=== PATIENT | female | born 1930 | race Caucasian/White ===

== ENCOUNTER 2017-07-20 11:51 | Inpatient (IN) | payer MEDICARE, BC ==
[~2017-07-20] VITALS: Ht 170.2 cm; Wt 71.7 kg
[~2017-07-20 11:51] MED LIST changes: -DILT-145 PO
--- NOTE | 2017-07-20 11:54 | ER Report ---
History and Physical Time Seen By MD: 11:53 HPI/ROS CC: Tachycardia HPI: 87-year-old female with a past medical history of cystocele without uterine prolapse, osteoarthritis, pneumonia, aortic arch aneurysm with repair, UTI, bilateral lower extremity edema, left humeral fracture, pulmonary embolus, hypertension, pulmonary infarction, migraine, lipidemia, hearing loss, chronic kidney disease, elevated liver enzymes, non-ST elevated OR, cardiomyopathy, hypothyroidism, atrial fibrillation, CHF, CAD, type II diabetes mellitus. Presents to the emergency department from the PCPs office. She was found to have atrial fibrillation with RVR at a ventricular rate of 145 bpm. WI interval non-measurable QRS duration 132 ms, QT 356 ms, QTC 552 ms. Also with a left bundle-branch block. Patient is without any symptoms other than palpitations of a rapid heart rate. Patient denies any nausea vomiting, diaphoresis, shortness of breath, chest pressure or chest pain. According to the daughter over the last 2-3 days she has progressively worsened in her exercise tolerance. Patient is denying any shortness of breath but the daughter states that she has become more short of breath with ambulation. Patient's pain scale is 0 out of 10. She has no other complaints. ROS: 12 point review of systems essentially negative other than what's mentioned in history of present illness. NURSES AND OLD MEDICAL RECORDS: Reviewed PMH: Reviewed SURGICAL HX: Reviewed FAMILY HX: Noncontributory SOCIAL HX: Patient denies smoking alcohol or illicit drugs. Lives at home. VITAL SIGNS: Reviewed CONSTITUTIONAL: 87 year old female in minimal distress. PHYSICAL EXAM: HEENT: Pupils equal round reactive to light and accommodate, EOMI, tympanic membranes pearly white umbo present with good light reflex. Lips dry mucous membranes moist gums nonbleeding uvula midline and rises equally with phonation, oropharynx noninjected, teeth intact. NECK: Neck supple, thyroid not appreciated, anterior and posterior cervical lymphadenopathy not appreciated. Trachea midline and rises equally with phonation. CARDIAC: S1-S2 tachycardic, irregularly irregular rate rhythm no murmurs rubs or gallops. LUNGS: Lungs crackles bilaterally greater at the bases posteriorly in all fontenot. Good air movement. ABDOMEN: Abdomen soft, nondistended, bowel sounds active in all 4 quadrants, no bruits noted, no CVA tenderness. MUSCULOSKELETAL: Strength 5 out of 5 x 4 extremities, no deformities noted. Positive bilateral lower leg edema to the knees. NEUROLOGIC: Patient alert and oriented by 3 Allergies: Coded Allergies: Sulfa (Sulfonamide Antibiotics) (Unverified Allergy, Severe, HIVES, ) procaine (Verified Allergy, Severe, ITCHING, RESP PROBLEMS, HIVES, 08/14/15 ) Penicillins (Verified Allergy, Unknown, UNKNOWN, 08/14/15) Home Meds Active Scripts Warfarin Sodium (WARFARIN SODIUM) 5 Mg Tablet, 1 TAB PO QDAY, #30 TAB Prov:GUALBERTO DANIELLE MD 05/28/17 Furosemide (FUROSEMIDE) 20 Mg Tablet, 20 MG PO QDAY, #30 TAB 3 Refills Prov:GUALBERTO DANIELLE MD 05/09/17 Potassium Chloride (POTASSIUM CHLORIDE) 20 Meq Tab.er.prt, 20 MEQ PO QODAY, #15 TAB 3 Refills Prov:GUALBERTO DANIELLE MD 03/29/17 Levothyroxine Sodium (LEVOTHYROXINE SODIUM) 25 Mcg Tablet, 1 TAB PO QDAY, #90 TAB 2 Refills Prov:GUALBERTO DANIELLE MD 02/22/17 Losartan Potassium (LOSARTAN POTASSIUM) 25 Mg Tablet, 25 MG PO QDAY, #90 TAB 4 Refills Prov:GUALBERTO DANIELLE MD 02/21/17 Aspirin (ASPIR 81) 81 Mg Tablet.dr, 81 MG PO QDAY, #90 TAB 3 Refills Prov:GUALBERTO DANIELLE MD 02/19/17 Metformin Hcl (METFORMIN HCL ER) 500 Mg Tab.er.24, 2 TAB PO QDAY, #60 TAB 4 Refills Prov:GUALBERTO DANIELLE MD 01/31/17 Blood Sugar Diagnostic (ONE TOUCH ULTRA TEST STRIPS) 1 Each Strip, 1 EACH MC QDAY, #100 STRIP 3 Refills Use once a day to test blood sugar Prov:GUALBERTO DANIELLE MD 11/03/16 Lancets (ONE TOUCH LANCETS) 1 Each Each, 1 EACH MC QDAY, #100 3 Refills Use once a day to test blood sugar Prov:GUALBERTO DANIELLE MD 11/03/16 Blood-Glucose Meter (ONE TOUCH ULTRA 2) 1 Each Kit, 1 EACH MC QDAY, #1 Use once a day to test blood sugar Prov:GUALBERTO DANIELLE MD 11/03/16 Discontinued Scripts Atorvastatin Calcium (ATORVASTATIN CALCIUM) 10 Mg Tablet, 1 TAB PO QHS, #90 TAB 0 Refills Prov:GUALBERTO DANIELLE MD 05/15/17 Hx Smoking: Yes (JUST A FEW YEARS SHE STATES) Smoking Status: Former Smoker Exposure to Second Hand Smoke?: No Hx Substance Use Disorder: No Hx Alcohol Use: Yes (OCC) Constitutional Vital Sign - Last 24 Hours 07/20/17 07/20/17 07/20/17 07/20/17 11:57 12:00 12:06 12:09 Pulse 142 140 Resp 18 26 B/P (MAP) 115/79 115/79 (91) Pulse Ox 94 95 O2 Delivery Nasal Cannula O2 Flow Rate 3.0 07/20/17 07/20/17 07/20/17 07/20/17 12:12 12:21 12:30 12:35 Pulse 111 Resp 24 B/P (MAP) 105/80 (88) 98/70 (79) 110/72 (85) Pulse Ox 91 07/20/17 12:36 Pulse ??? Resp 28 Pulse Ox 94 Intake and Output 07/20/17 07/20/17 07/21/17 15:00 23:00 07:00 Output Total 100 ml Balance -100 ml Medical Decision Making Data Points Result Diagram: 07/20/17 1220 07/20/17 1220 Laboratory Hematology Test 07/20/17 12:20 Red Blood Count 5.21 M/uL (4.17-5.56) Mean Corpuscular Volume 90.5 fL (80.0-96.0) Mean Corpuscular Hemoglobin 30.2 pg (26.0-33.0) Mean Corpuscular Hemoglobin Concent 33.3 g/dL (32.0-36.0) Red Cell Distribution Width 16.2 % (11.5-14.5) Mean Platelet Volume 9.0 fL (7.2-11.1) Neutrophils (%) (Auto) 85.9 % (39.4-72.5) Lymphocytes (%) (Auto) 4.5 % (17.6-49.6) Monocytes (%) (Auto) 8.7 % (4.1-12.4) Eosinophils (%) (Auto) 0.3 % (0.4-6.7) Basophils (%) (Auto) 0.6 % (0.3-1.4) Nucleated RBC Relative Count (auto) 0.0 /100WBC Neutrophils # (Auto) 4.8 K/uL (2.0-7.4) Lymphocytes # (Auto) 0.3 K/uL (1.3-3.6) Monocytes # (Auto) 0.5 K/uL (0.3-1.0) Eosinophils # (Auto) 0.0 K/uL (0.0-0.5) Basophils # (Auto) 0.0 K/uL (0.0-0.1) Nucleated RBC Absolute Count (auto) 0.00 K/uL Prothrombin Time 23.5 seconds (12.0-14.4) Prothromb Time International Ratio 2.03 Activated Partial Thromboplast Time 28 seconds (23-35) Sodium Level 135 mmol/L (137-145) Potassium Level 4.4 mmol/L (3.5-5.0) Chloride Level 98 mmol/L (98-107) Carbon Dioxide Level 27 mmol/L (22-31) Blood Urea Nitrogen 25 mg/dl (7-18) Creatinine 0.90 mg/dl (0.52-1.04) Glomerular Filtration Rate Calc 59.4 Random Glucose 183 mg/dl (75-110) Calcium Level 9.1 mg/dl (8.4-10.2) Magnesium Level 1.4 mg/dl (1.7-2.2) Total Bilirubin 1.7 mg/dl (0.2-1.3) Aspartate Amino Transf (AST/SGOT) 42 U/L (0-35) Alanine Aminotransferase (ALT/SGPT) 89 U/L (0-56) Alkaline Phosphatase 101 U/L (0-126) Troponin I 0.022 ng/ml B-Type Natriuretic Peptide 1620 pg/ml (0-100) Total Protein 6.4 gm/dl (6.3-8.2) Albumin 3.6 g/dl (3.5-5.0) Chemistry Test 07/20/17 12:20 White Blood Count 5.6 k/uL (4.5-11.0) Red Blood Count 5.21 M/uL (4.17-5.56) Hemoglobin 15.7 g/dL (12.0-16.0) Hematocrit 47.2 % (34.0-47.0) Mean Corpuscular Volume 90.5 fL (80.0-96.0) Mean Corpuscular Hemoglobin 30.2 pg (26.0-33.0) Mean Corpuscular Hemoglobin Concent 33.3 g/dL (32.0-36.0) Red Cell Distribution Width 16.2 % (11.5-14.5) Platelet Count 173 K/uL (150-450) Mean Platelet Volume 9.0 fL (7.2-11.1) Neutrophils (%) (Auto) 85.9 % (39.4-72.5) Lymphocytes (%) (Auto) 4.5 % (17.6-49.6) Monocytes (%) (Auto) 8.7 % (4.1-12.4) Eosinophils (%) (Auto) 0.3 % (0.4-6.7) Basophils (%) (Auto) 0.6 % (0.3-1.4) Nucleated RBC Relative Count (auto) 0.0 /100WBC Neutrophils # (Auto) 4.8 K/uL (2.0-7.4) Lymphocytes # (Auto) 0.3 K/uL (1.3-3.6) Monocytes # (Auto) 0.5 K/uL (0.3-1.0) Eosinophils # (Auto) 0.0 K/uL (0.0-0.5) Basophils # (Auto) 0.0 K/uL (0.0-0.1) Nucleated RBC Absolute Count (auto) 0.00 K/uL Prothrombin Time 23.5 seconds (12.0-14.4) Prothromb Time International Ratio 2.03 Activated Partial Thromboplast Time 28 seconds (23-35) Glomerular Filtration Rate Calc 59.4 Calcium Level 9.1 mg/dl (8.4-10.2) Magnesium Level 1.4 mg/dl (1.7-2.2) Total Bilirubin 1.7 mg/dl (0.2-1.3) Aspartate Amino Transf (AST/SGOT) 42 U/L (0-35) Alanine Aminotransferase (ALT/SGPT) 89 U/L (0-56) Alkaline Phosphatase 101 U/L (0-126) Troponin I 0.022 ng/ml B-Type Natriuretic Peptide 1620 pg/ml (0-100) Total Protein 6.4 gm/dl (6.3-8.2) Albumin 3.6 g/dl (3.5-5.0) Coagulation Test 07/20/17 12:20 Prothrombin Time 23.5 seconds Prothromb Time International Ratio 2.03 Activated Partial Thromboplast Time 28 seconds EKG/Imaging EKG Interpretation Atrial fibrillation with RVR, left bundle-branch block, ventricular rate 137 bpm , WI interval not measurable, QRS duration 142 ms, Q-T 372 ms, QTC is 561 ms. Imaging Chest x-ray reveals: IMPRESSION: 1. Mild cardiac silhouette enlargement which has increased since 11/30/2016. 2. New vascular congestion and probable mild pulmonary edema. ED Course/Re-evaluation ED Course Patient with CHF she received 60 mg of IV Lasix. Patient received Cardizem 20 mg IV for her atrial fibrillation and RVR. Patient continues to be tachycardic and her CHF patient was placed on diltiazem drip. Patient also has magnesium level of 1.4 and was given 2 g of magnesium IV. Report was given to Dr. Moffett, hospitalist. He accepts patient. Patient will be admitted to the hospital for further evaluation and treatment. Patient with a plan and in agreement. Re-evaluation CHF, atrial fibrillation with RVR, acute OR, this most likely accommodation of CHF with atrial fib RVR. Decision to Disposition Date: Jul 20, 2017 Decision to Disposition Time: 13:41 Depart Departure Latest Vital Signs Vital Signs Date Time Temp Pulse Resp B/P (MAP) Pulse Ox O2 Delivery O2 Flow Rate FiO2 07/20/17 12:36 ??? 28 94 07/20/17 12:35 110/72 (85) 07/20/17 12:09 3.0 07/20/17 11:57 Nasal Cannula Impression: Primary Impression: Atrial fibrillation with RVR Additional Impressions: Congestive heart failure Hypomagnesemia Condition: Condition Unchanged Disposition: Admitted from ER Referrals: GUALBERTO DANIELLE MD (PCP) Problem Qualifiers Additional Impressions: Congestive heart failure Congestive heart failure type: unspecified congestive heart failure type Congestive heart failure chronicity: unspecified congestive heart failure chronicity Qualified Codes: I50.9 - Heart failure, unspecified MOOSE MARTINEZ MD Jul 20, 2017 11:54
[2017-07-20] MEDS ORDERED: DILTIAZEM 5 MG/ML 5ML IVPUSH IVP ONE (12:05)
--- NOTE | 2017-07-20 12:14 | EKG ---
FACILITY: [facility] PATIENT NAME: MATEUS BARRETT : [id number] MR: [id number] V: [id number] EXAM DATE: ORDERING PHYSICIAN: MOOSE MARTINEZ TECHNOLOGIST: Test Reason : tachycardia Blood Pressure : / mmHG Vent. Rate : 137 BPM Atrial Rate : 100 BPM P-R Int : 000 ms QRS Dur : 142 ms QT Int : 372 ms P-R-T Axes : 000 038 221 degrees QTc Int : 561 ms Atrial fibrillation with rapid ventricular response Left bundle branch block Abnormal ECG When compared with ECG of 19-FEB-2017 09:57, Atrial fibrillation has replaced Sinus rhythm Vent. rate has increased BY 67 BPM Confirmed by ANTHONY MENA ([id number]) on 07/22/2017 2:57:09 PM Referred By: MICHELLE Confirmed By:ANTHONY MENA
[2017-07-20] MEDS ORDERED: FUROSEMIDE 40 MG/4 ML VIAL IVP ONE (12:25)
[2017-07-20 12:31] LABS: PLATELET COUNT, AUTOMATED 173 K/uL (150-450)
--- NOTE | 2017-07-20 12:51 | RADIOLOGY IMAGING REPORT ---
FACILITY: [facility] PATIENT NAME: Argenis Jones : 1930 MR: [id number] V: [id number] EXAM DATE: ORDERING PHYSICIAN: MOOSE MARTINEZ TECHNOLOGIST: Location: [facility] Patient: Argenis Jones : 1930 Visit/Account:[id number] Date of Sevice: 07/20/2017 Examination: CHEST SINGLE AP Comparison: 11/30/2016 and earlier. History: Chest Pain Findings: Sternotomy wires are midline and intact. Cardiac silhouette is mildly enlarged and increase d in the interval. Aortic atherosclerosis. Aortic contour is unchanged. Increased vascular congestio n with mild indistinctness of the central vascular margins. No consolidation. No pneumothorax. A trac e left pleural effusion could be present. No acute osseous normality. IMPRESSION: 1. Mild cardiac silhouette enlargement which has increased since 11/30/2016. 2. New vascular congestion and probable mild pulmonary edema. Report Dictated By: Luciano Yanez MD at 07/20/2017 12:45 PM Report E-Signed By: Luciano Yanez MD at 07/20/2017 12:47 PM WSN:[id number]
[2017-07-20 12:54] LABS: INR 2.03
[2017-07-20] MEDS ORDERED: MAGNESIUM SUL* 2 GM/50 ML IVPB 50 ML IVPB ONE (13:20)
[2017-07-20] MEDS ORDERED: DILTIAZEM HCL* 100 MG ADDVIAL 100 MG in NS(*) 0.9% 100 ML ADDVANT BAG 100 ML IV SCH ×2 (13:25→13:45)
[2017-07-20] MEDS ORDERED: NS(*) 0.9% 1000 ML BAG 1,000 ML IV ONE (13:50)
[2017-07-20 15:34] VITALS: BP 131/84
[2017-07-20] MEDS ORDERED: guaiFENesin SYRP 100MG/5ML UDC PO PRN (17:45)
[2017-07-20] MEDS ORDERED: METOPROLOL TART 50 MG TAB PO ONE (17:45)
[2017-07-20] MEDS ORDERED: ONDANSETRON 4 MG/2 ML VIAL IVP PRN (18:10)
[2017-07-20] MEDS ORDERED: ACETAMINOPHEN 325 MG TAB PO PRN (18:10)
[2017-07-20 18:25] VITALS: BP 98/83
[2017-07-20] MEDS ORDERED: NS(*) 0.9% 1000 ML BAG 1,000 ML IV PRN (18:45)
[2017-07-20] MEDS: metFORMIN HCL 500 MG TAB PO SCH (20:49)
[2017-07-20] MEDS: INSULIN HUMAN LISPRO SLIDING SCALE SUBQ PRN (20:50)
[2017-07-20] MEDS ORDERED: DILTIAZEM CD 180 MG CAPCR PO SCH ×3 (21:00)
[2017-07-20 21:07] VITALS: Ht 170.2 cm; Wt 71.7 kg
--- NOTE | 2017-07-20 21:19 | Medical Nutrition Therapy ---
Nutrition Anthropometrics Height (Inches): 67.00 Height (Calculated Centimeters: 170.490031 Weight (Pounds): 158 Weight (Calculated Kilograms): 71.724 BMI Calculated: 24.74 Bob Nutrition Score: Probably Inadequate Bob Nutrition Risk Score: 16 Dietary Referral Nutrition Risk Factors: Nutrition Risk Comment: Physical Findings Physical Appearance: WNR Skin Appearance Skin Appearance: Edema Edema Location Modifier: Both Edema Location: Type of Edema: Degree of Edema: 1+ Gastrointestinal Symptoms GI Symtoms: Tube Present: Bowel Sounds: Recent Bowel Pattern: Stool Characteristics: Nutritional Diagnosis Nutritional Risk Acuity 2: CHF w/Complication Past Medical History: hpothyroid, HTN, GERD, CAD hyperlipidemia, post orthopedic surgery Nutritional Acuity: 2-Moderate Nutrition Diagnosis: Decreased Nutrient Needs Nutrition Etiology: Physiological Causes Nutrition Problem/Etiology/Sym: Decreased Nutrient Needs r/t heart failure AEB conditions associated with a diagnosis or treatment that require a specific type and/or amount of nutrient, e.g., heart failure (sodium, fluid) Energy Requirement: 1800 ([place]-St Jeor: Actual BW X 1.5) Protein Requirement: 72 (Actual BW Kg X 1.0) Diet Type: Cardiac Nutrition Intervention: Cont diet as ordered, Change diet Drug: Diuretics, Warfarin Do Not Serve Any of the Follow: Broccoli, Brussel Sprouts, Spinach, [place] Lettuce, Cranberry Juice Nutrition Monitoring & Eval Nutrition Goals: Eat 75-100% Meal RD Patient Assessment Time: [address] Assessment Type: RD Assessment Patient Nutrition Acuity: 2-Moderate Follow Up Date: Jul 22, 2017 Nutritional Comment: Pt admitted for CHF. Within normal wt range with BMI of 24.7. Alb 3.6, BNP 1620, High AST/ALT, Glu 183. Metformin 500mg BID, Lispro SSI. Receiving Cardiac diet with no reports of intake. May benefit from diabetic diet while in hospital. Follow diet change, labs, etc. JUNE INIGUEZ Jul 20, 2017 21:18
--- NOTE | 2017-07-20 23:09 | History & Physical ---
History of Present Illness Chief Complaint Tachycardia History of Present Illness Mrs. oJnes is an 87-year-old female with a past medical history of HTN, DM-II, Hyperlipidemia, Hypothyroidism, A.fib on Coumadin and cystocele without uterine prolapse, osteoarthritis, pneumonia, aortic arch aneurysm with repair, UTI, bilateral lower extremity edema, left humeral fracture, pulmonary embolus, migraine, hearing loss, chronic kidney disease, elevated liver enzymes, non-ST elevated [place], cardiomyopathy, hypothyroidism, CHF, CAD, She Presented to the emergency department from the PCPs office. She was found to have atrial fibrillation with RVR at a ventricular rate of 145 bpm. MT interval non- measurable QRS duration 132 ms, QT 356 ms, QTC 552 ms. Also with a left bundle- branch block. Patient was without any symptoms other than palpitations of a rapid heart rate. Patient denied any nausea vomiting, diaphoresis, shortness of breath, chest pressure or chest pain. According to the daughter over the last 2- 3 days she has progressively worsened in her exercise tolerance. Patient denied any shortness of breath but the daughter stated that she became more short of breath with ambulation. Patient's pain scale was 0 out of 10. She has no other complaints. During the ER evaluation she found to have high BNP>1600 and mild elevation of BUN/CR. I discussed the case with the ER-MD and admitted the patient for further evaluation and management. History Home Meds Active Scripts Warfarin Sodium (WARFARIN SODIUM) 5 Mg Tablet, 1 TAB PO QDAY, #30 TAB Prov:GUALBERTO DANIELLE MD 05/28/17 Furosemide (FUROSEMIDE) 20 Mg Tablet, 20 MG PO QDAY, #30 TAB 3 Refills Prov:GUALBERTO DANIELLE MD 05/09/17 Potassium Chloride (POTASSIUM CHLORIDE) 20 Meq Tab.er.prt, 20 MEQ PO QODAY, #15 TAB 3 Refills Prov:GUALBERTO DANIELLE MD 03/29/17 Levothyroxine Sodium (LEVOTHYROXINE SODIUM) 25 Mcg Tablet, 1 TAB PO QDAY, #90 TAB 2 Refills Prov:GUALBERTO DANIELLE MD 02/22/17 Losartan Potassium (LOSARTAN POTASSIUM) 25 Mg Tablet, 25 MG PO QDAY, #90 TAB 4 Refills Prov:GUALBERTO DANIELLE MD 02/21/17 Aspirin (ASPIR 81) 81 Mg Tablet.dr, 81 MG PO QDAY, #90 TAB 3 Refills Prov:GUALBERTO DANIELLE MD 02/19/17 Metformin Hcl (METFORMIN HCL ER) 500 Mg Tab.er.24, 2 TAB PO QDAY, #60 TAB 4 Refills Prov:GUALBERTO DANIELLE MD 01/31/17 Blood Sugar Diagnostic (ONE TOUCH ULTRA TEST STRIPS) 1 Each Strip, 1 EACH MC QDAY, #100 STRIP 3 Refills Use once a day to test blood sugar Prov:GUALBERTO DANIELLE MD 11/03/16 Lancets (ONE TOUCH LANCETS) 1 Each Each, 1 EACH MC QDAY, #100 3 Refills Use once a day to test blood sugar Prov:GUALBERTO DANIELLE MD 11/03/16 Blood-Glucose Meter (ONE TOUCH ULTRA 2) 1 Each Kit, 1 EACH MC QDAY, #1 Use once a day to test blood sugar Prov:GUALBERTO DANIELLE MD 11/03/16 Discontinued Scripts Atorvastatin Calcium (ATORVASTATIN CALCIUM) 10 Mg Tablet, 1 TAB PO QHS, #90 TAB 0 Refills Prov:GUALBERTO DANIELLE MD 05/15/17 Allergies: Coded Allergies: Sulfa (Sulfonamide Antibiotics) (Unverified Allergy, Severe, HIVES, ) procaine (Verified Allergy, Severe, ITCHING, RESP PROBLEMS, HIVES, 08/14/15 ) Penicillins (Verified Allergy, Unknown, UNKNOWN, 08/14/15) Patient History: FH: breast cancer BROTHER OR SISTER, Age:Unk (One sister with Breast Cancer) Aunt, Age:Unk Hx Smoking: Yes (JUST A FEW YEARS SHE STATES) Smoking Status: Former Smoker Exposure to Second Hand Smoke?: No Caffeine Intake: Coffee Caffeine/Cups Per Day: 1 Hx Alcohol Use: Yes (OCC) Hx Substance Use Disorder: No Social Drug Use: Never Review of Systems Constitutional: No Fever, No Weight Loss, No Weight Gain, No Chills Neurological: Weakness, No Syncope, No Confusion, No Dizziness, No Slurred Speech Eyes: No Vision Change ENT: Other, No Sinus Congestion, No Sore Throat Cardiovascular: Palpitations, No Chest Pain Respiratory: Shortness of Breath, No Cough, No Wheezing Gastrointestinal: No Nausea, No Vomiting, No Diarrhea, No Dysphagia, No Constipation, No Hematemesis, No Melena, No Abdominal Pain Genitourinary: No Dysuria, No Hematuria Musculoskeletal: No Pain, No Sprain, No Strain Psychiatric: No Depression, No Anxiety Exam Vital Signs Vital Signs Date Time Temp Pulse Resp B/P (MAP) Pulse Ox O2 Delivery O2 Flow Rate FiO2 07/20/17 19:19 93 Nasal Cannula 3.0 07/20/17 18:25 98.3 162 15 98/83 (88) General Appearance: Alert, Awake, No Acute Distress, Afebrile Neuro: No Gross deficits Eyes: PERRLA ENT: Other (dry oral mucosa) Cardiovascular: Other (a.fib with RVR) Respiratory: No Respiratory Distress GI: Abd Soft and Non-Tender Extremities: Soft and Non Tender, Edema Psych: Alert & Oriented X3, Appropriate Mood & Affect Medical Decision Making Data Points Result Diagram: 07/20/17 1220 07/20/17 1220 Assessment and Plan Problems: (1) Atrial fibrillation with RVR Status: Acute Assessment & Plan: She presented with [email or web address] with RVR and she was started on Cardizem drip 10mg/h in the ER. Her VR was 130's. I started her on Metoprolol 25mg po bid and 1st dose now. I will add PO Cardizem CD 180mg once her VR around 100 and then stop her drip. I will keep her on Cardizem CD 180 daily and Metoprolol 25mg po bid. I will continue her Coumadin 5mg daily. (2) Congestive heart failure Status: Acute Assessment & Plan: She is in mild fluid overload and I will Lasix and and elevate her LE above heart level. I will repeat her blood work in am. (3) Diabetes mellitus, type 2 Status: Chronic Assessment & Plan: I will check her BS qAC and HS. I will put her on sliding scale of Humolog to cover her high BS. I will keep her Metformin 500mg po bid. Robitussin for her cough. I will manage her underlying medical problems accordingly during this hospitalization. Central Venous Access Medical Necessity for Access: IV Access, Medication Administration Condition Guarded Time Spent on Plan of Care: > 30 min Copies to: GUALBERTO DANIELLE MD Venous Thromboembolism VTE Risk Physician Assess for VTE Risk: Yes Patient's VTE Risk: Low VTE Diagnostic Test 2 Days Prior to Admit: No Antithrombotics Is Pt On Any Antithrombotics?: No Heart Failure Ejection Fraction %: 23 NYHA Class: III Is Patient on BRET Inhibitor?: Yes Is Patient on Beta Viktor?: Yes Admission Weight: 80 Exam Sepsis Risk: No Definite Risk EVY SINGH MD Jul 20, 2017 23:09
[2017-07-20 23:48] VITALS: BP 94/76
[2017-07-21 03:59] VITALS: BP 86/69
[2017-07-21 04:18] VITALS: BP 84/60
[2017-07-21] MEDS ORDERED: LEVOTHYROXINE SOD 0.025 MG TAB PO SCH (06:00)
[2017-07-21] MEDS ORDERED: DILTIAZEM HCL* 100 MG ADDVIAL 100 MG in NS(*) 0.9% 100 ML ADDVANT BAG 100 ML IV SCH (07:00)
[2017-07-21 08:01] VITALS: BP 101/78
[2017-07-21] MEDS ORDERED: ASPIRIN 81 MG CHEW CHEW SCH (09:00)
[2017-07-21] MEDS ORDERED: FUROSEMIDE 40 MG TAB PO SCH (09:00)
[2017-07-21] MEDS ORDERED: LOSARTAN POTASSIUM 50 MG TAB PO SCH (09:00)
[2017-07-21] MEDS ORDERED: METOPROLOL TART 50 MG TAB PO SCH (09:00)
[2017-07-21] MEDS: metFORMIN HCL 500 MG TAB PO SCH (09:00)
[2017-07-21 09:55] LABS: INR 2.25
[2017-07-21] MEDS ORDERED: WARFARIN SOD 5 MG TAB PO SCH (13:00)
[2017-07-21] MEDS: INSULIN HUMAN LISPRO SLIDING SCALE SUBQ PRN (13:35)
[2017-07-21] MEDS ORDERED: DILT-145 PO (13:43)
[2017-07-21] MEDS ORDERED: METO25TA93 PO (13:48)
--- NOTE | 2017-07-21 21:22 | Hospitalist Depart ---
Discharge Summary Reason for Hosp/Final Diag: (1) Atrial fibrillation with RVR Status: Acute Hospital Course & Plan: Mrs. Jones is an 87-year-old female with a past medical history of HTN, DM-II, Hyperlipidemia, Hypothyroidism, A.fib on Coumadin and cystocele without uterine prolapse, osteoarthritis, pneumonia, aortic arch aneurysm with repair, UTI, bilateral lower extremity edema, left humeral fracture, pulmonary embolus, migraine, hearing loss, chronic kidney disease, elevated liver enzymes, non-ST elevated [place], cardiomyopathy, hypothyroidism, CHF, CAD, She Presented to the emergency department from the PCPs office. She was found to have atrial fibrillation with RVR at a ventricular rate of 145 bpm. W[place] interval non-measurable QRS duration 132 ms, QT 356 ms, QTC 552 ms. Also with a left bundle-branch block. Patient was without any symptoms other than palpitations of a rapid heart rate. Patient denied any nausea vomiting, diaphoresis, shortness of breath, chest pressure or chest pain. According to the daughter over the last 2-3 days she has progressively worsened in her exercise tolerance. Patient denied any shortness of breath but the daughter stated that she became more short of breath with ambulation. Patient's pain scale was 0 out of 10. She has no other complaints. During the ER evaluation she found to have high BNP>1600 and mild elevation of BUN/CR. I discussed the case with the ER-MD and admitted the patient for further evaluation and management.She presented with A.fib with RVR and she was started on Cardizem drip 10mg/h in the ER. Her VR was 130's. I started her on Metoprolol 25mg po bid and 1st dose now. I will add PO Cardizem CD 180mg once her VR around 100 and then stop her drip. I will keep her on Cardizem CD 180 daily and Metoprolol 25mg po bid. I will continue her Coumadin 5mg daily. 07/21: She did well on the above regimen Cardizem CD 180mg qd and Metoprolol 25mg po bid. She will be d/c'd today and f/u with her PCP and manager environmental services (2) Congestive heart failure Status: Acute Hospital Course & Plan: She is in mild fluid overload and I will Lasix and and elevate her LE above heart level. I will repeat her blood work in am. 07/21: She is asymptomatic and denies any SOB/CP (3) Diabetes mellitus, type 2 Status: Chronic Hospital Course & Plan: I will check her BS qAC and HS. I will put her on sliding scale of Humolog to cover her high BS. I will keep her Metformin 500mg po bid. Robitussin for her cough. I will manage her underlying medical problems accordingly during this hospitalization. Departure Weight (Pounds): 158 Weight (Ounces): 2.0 Result Diagram: 07/20/17 1220 07/21/17 0650 Condition: Improved Discharge: Home, Self Care, Home Health Time Spent: > 30 min Discharge Instructions Home Meds Active Scripts Warfarin Sodium (WARFARIN SODIUM) 5 Mg Tablet, 1 TAB PO QDAY, #30 TAB Prov:GUALBERTO DANIELLE MD 05/28/17 Furosemide (FUROSEMIDE) 20 Mg Tablet, 20 MG PO QDAY, #30 TAB 3 Refills Prov:GUALBERTO DANIELLE MD 05/09/17 Potassium Chloride (POTASSIUM CHLORIDE) 20 Meq Tab.er.prt, 20 MEQ PO QODAY, #15 TAB 3 Refills Prov:GUALBERTO DANIELLE MD 03/29/17 Levothyroxine Sodium (LEVOTHYROXINE SODIUM) 25 Mcg Tablet, 1 TAB PO QDAY, #90 TAB 2 Refills Prov:GUALBERTO DANIELLE MD 02/22/17 Losartan Potassium (LOSARTAN POTASSIUM) 25 Mg Tablet, 25 MG PO QDAY, #90 TAB 4 Refills Prov:GUALBERTO DANIELLE MD 02/21/17 Aspirin (ASPIR 81) 81 Mg Tablet.dr, 81 MG PO QDAY, #90 TAB 3 Refills Prov:GUALBERTO DANIELLE MD 02/19/17 Metformin Hcl (METFORMIN HCL ER) 500 Mg Tab.er.24, 2 TAB PO QDAY, #60 TAB 4 Refills Prov:GUALBERTO DANIELLE MD 01/31/17 Blood Sugar Diagnostic (ONE TOUCH ULTRA TEST STRIPS) 1 Each Strip, 1 EACH MC QDAY, #100 STRIP 3 Refills Use once a day to test blood sugar Prov:GUALBERTO DANIELLE MD 11/03/16 Lancets (ONE TOUCH LANCETS) 1 Each Each, 1 EACH MC QDAY, #100 3 Refills Use once a day to test blood sugar Prov:GUALBERTO DANIELLE MD 11/03/16 Blood-Glucose Meter (ONE TOUCH ULTRA 2) 1 Each Kit, 1 EACH MC QDAY, #1 Use once a day to test blood sugar Prov:GUALBERTO DANIELLE MD 11/03/16 Reported Medications Metoprolol Tartrate (METOPROLOL TARTRATE) 25 Mg Tablet, 1 TAB PO BID, TAB 07/21/17 Diltiazem Hcl (CARDIZEM CD) 180 Mg Cap.er.24h, 180 MG PO DAILY 07/21/17 Discontinued Scripts Atorvastatin Calcium (ATORVASTATIN CALCIUM) 10 Mg Tablet, 1 TAB PO QHS, #90 TAB 0 Refills Prov:GUALBERTO DANIELLE MD 05/15/17 Diet: Diabetic, Low Cholesterol & Sat Fat Activity: As Tolerated, With Walker Special Instructions: Patient will take Cardizem CD 180mg po daily for her A.fib and Metoprolol 25mg po bid and f/u with her PCP and manager environmental services in 1-2 weeks. Please call your primary care physician and your manager environmental services to make appointments as soon as possibe. Venous Thromboembolism Antithrombotics Is Pt On Any Antithrombotics?: No Heart Failure Ejection Fraction %: 23 NYHA Class: III Is Patient on BRET Inhibitor?: Yes Is Patient on Beta Viktor?: Yes Admission Weight: 80 EVY SINGH MD Jul 21, 2017 21:22
== END 2017-07-21 15:05 | disposition home or self-care (01) | DRG 309 ==
LOC: ER 11:56 → MED 14:06
PROVIDERS: ADMIT Specialist; ATTEND Specialist
DX: I48.0 Paroxysmal atrial fibrillation (principal); I13.0 Hypertensive heart and chronic kidney disease with heart failure and stage 1 through stage 4 chronic kidney disease, or unspecified chronic kidney disease; E11.22 Type 2 diabetes mellitus with diabetic chronic kidney disease; E83.42 Hypomagnesemia; I25.10 Atherosclerotic heart disease of native coronary artery without angina pectoris; I50.9 Heart failure, unspecified; E78.5 Hyperlipidemia, unspecified; I44.7 Left bundle-branch block, unspecified; E03.9 Hypothyroidism, unspecified; N18.9 Chronic kidney disease, unspecified; Z79.01 Long term (current) use of anticoagulants; Z86.711 Personal history of pulmonary embolism; I25.2 Old myocardial infarction; Z88.2 Allergy status to sulfonamides; Z88.0 Allergy status to penicillin; Z88.8 Allergy status to other drugs, medicaments and biological substances; Z87.891 Personal history of nicotine dependence; Z79.4 Long term (current) use of insulin; Z95.5 Presence of coronary angioplasty implant and graft; Z90.49 Acquired absence of other specified parts of digestive tract; Z90.710 Acquired absence of both cervix and uterus
CPT/HCPCS: 36415; 36416; 71010; 81001; 82040; 82247; 82310; 82374; 82435; 82565; 82947; 82948; 83735; 83880; 84075; 84132; 84155; 84295; 84443; 84450; 84460; 84484; 84520; 85025; 85610; 85730; 87077; 87088; 87186; 93005; 96365; 96368; 96375; 99285; J1940; J3475; J3490; J7030; J7050

== ENCOUNTER → 2017-07-20 | Outpatient (CLI) | payer MEDICARE, BC ==
[2016-10-25 15:56] VITALS: BMI 27.9
[~2017-07-20] MED LIST: ACET-1966 PO; ACET-2119 PO; ACET650S35 RC; ASCO100T15 PO; ASPI-1471 PO; ASPI-764 PO; ASPI-816 PO; ATOR10TA65 PO; AZI250 PO; AZIT-17 PO; BISA-229 PO; BISA10SU62 RC; BLOO-1318 MC; BLOO-1337 MC; CEPH500C24 PO; CHOL10005 PO; CLOP75TA43 PO; DILT-145 PO; DOCU100T13 PO; FLU180SY9 IM; FURO-45 PO; GLIM2TAB43 PO; HYDR-2966 PO; HYDR12.556 PO; HYDR12.561 PO; LANC-1149 MC; LEVO150T72 PO; LEVO25TA61 PO; LOR5/325 PO; LOSA-57 PO; LOSA100T67 PO; LOSA25TA50 PO; LOSA50TA72 PO; MELA1TAB27 PO; MELA3TAB31 PO; METF500T4 PO; METO25TA23 PO; METO25TA93 PO; ONDA4TAB9 PO; PANT40TA65 PO; PER PO; PNEU0.5D3 IM; POLY17PO25 PO; POTA20TA94 PO; PRAV40TA78 PO; RIVA15TA PO; RIVA20TA PO; WARF-1 PO; WARF-18 PO; WARF2.5T11 PO; WARF3TAB35 PO; [UNRECOGNIZED DRUG - CODE] PO
--- NOTE | 2017-07-20 12:17 | EKG ---
FACILITY: [facility] PATIENT NAME: MATEUS BARRETT : [id number] MR: [id number] V: [id number] EXAM DATE: ORDERING PHYSICIAN: GUALBERTO DANIELLE TECHNOLOGIST: JOANN Winters Reason : TACHYCARDIA Blood Pressure : / mmHG Vent. Rate : 145 BPM Atrial Rate : 138 BPM P-R Int : 000 ms QRS Dur : 132 ms QT Int : 356 ms P-R-T Axes : 000 066 246 degrees QTc Int : 552 ms Atrial fibrillation with premature ventricular or aberrantly conducted complexes Left bundle branch block Abnormal ECG No previous ECGs available Referred By: GUALBERTO DANIELLE Confirmed By:
== END ==
LOC: RESP 11:55
PROVIDERS: ATTEND Internal Medicine
DX: Z02.9 Encounter for administrative examinations, unspecified (principal)

== ENCOUNTER 2017-07-26 16:31 | Inpatient (IN) | payer MEDICARE, BC ==
[~2017-07-26] VITALS: Ht 162.6 cm; Wt 67.4 kg
[~2017-07-26 16:31] MED LIST changes: +DILT-145 PO
--- NOTE | 2017-07-26 16:45 | ER Report ---
History and Physical Time Seen By MD: 16:44 Hx. of Stated Complaint: Brought in by her daughter today for altered mental status. Daughter states pt. is more alert at this time. Low sats on initial VS. HPI/ROS CHIEF COMPLAINT: Altered mental status HISTORY OF PRESENT ILLNESS: 87-year-old female patient presents to emergency room with complaint of altered mental status. Patient states that she is feeling fine. Patient does have her daughter with her. Her daughter states that she hasn't seen her for the last few days. She states that the last time she had seen her she was up, she is also she is doing better than she currently is. Patient states that today she found herself in the toilet. She states that she was slow to respond. She states that the patient is just not acting like herself. Daughter denies any fevers, chills, nausea, vomiting or diarrhea. Daughter states that it even approximate 4 days since she had seen her last. Patient was recently admitted with atrial fibrillation with RVR, patient was discharged on 07/21/2017. REVIEW OF SYSTEMS: Respiratory: No cough, no dyspnea. Cardiovascular: No chest pain, no palpitations. Gastrointestinal: No vomiting, no abdominal pain. Musculoskeletal: No back pain. Allergies: Coded Allergies: Sulfa (Sulfonamide Antibiotics) (Unverified Allergy, Severe, HIVES, ) procaine (Verified Allergy, Severe, ITCHING, RESP PROBLEMS, HIVES, 08/14/15 ) Penicillins (Verified Allergy, Unknown, UNKNOWN, 08/14/15) Home Meds Active Scripts Warfarin Sodium (WARFARIN SODIUM) 5 Mg Tablet, 1 TAB PO QDAY, #30 TAB Prov:GUALBERTO DANIELLE MD 05/28/17 Furosemide (FUROSEMIDE) 20 Mg Tablet, 20 MG PO QDAY, #30 TAB 3 Refills Prov:GUALBERTO DANIELLE MD 05/09/17 Potassium Chloride (POTASSIUM CHLORIDE) 20 Meq Tab.er.prt, 20 MEQ PO QODAY, #15 TAB 3 Refills Prov:GUALBERTO DANIELLE MD 03/29/17 Levothyroxine Sodium (LEVOTHYROXINE SODIUM) 25 Mcg Tablet, 1 TAB PO QDAY, #90 TAB 2 Refills Prov:GUALBERTO DANIELLE MD 02/22/17 Losartan Potassium (LOSARTAN POTASSIUM) 25 Mg Tablet, 25 MG PO QDAY, #90 TAB 4 Refills Prov:GUALBERTO DANIELLE MD 02/21/17 Aspirin (ASPIR 81) 81 Mg Tablet.dr, 81 MG PO QDAY, #90 TAB 3 Refills Prov:GUALBERTO DANIELLE MD 02/19/17 Metformin Hcl (METFORMIN HCL ER) 500 Mg Tab.er.24, 2 TAB PO QDAY, #60 TAB 4 Refills Prov:GUALBERTO DANIELLE MD 01/31/17 Blood Sugar Diagnostic (ONE TOUCH ULTRA TEST STRIPS) 1 Each Strip, 1 EACH MC QDAY, #100 STRIP 3 Refills Use once a day to test blood sugar Prov:GUALBERTO DANIELLE MD 11/03/16 Lancets (ONE TOUCH LANCETS) 1 Each Each, 1 EACH MC QDAY, #100 3 Refills Use once a day to test blood sugar Prov:GUALBERTO DANIELLE MD 11/03/16 Blood-Glucose Meter (ONE TOUCH ULTRA 2) 1 Each Kit, 1 EACH MC QDAY, #1 Use once a day to test blood sugar Prov:GUALBERTO DANIELLE MD 11/03/16 Reported Medications Metoprolol Tartrate (METOPROLOL TARTRATE) 25 Mg Tablet, 1 TAB PO BID, TAB 07/21/17 Diltiazem Hcl (CARDIZEM CD) 180 Mg Cap.er.24h, 180 MG PO DAILY 07/21/17 Discontinued Scripts Atorvastatin Calcium (ATORVASTATIN CALCIUM) 10 Mg Tablet, 1 TAB PO QHS, #90 TAB 0 Refills Prov:GUALBERTO DANIELLE MD 05/15/17 Past Medical/Surgical History Patient has a past medical history of chronic nerve damage, migraines, murmur, A. fib, hypertension, pneumonia, PE, fracture left arm, hypothyroidism, alcohol use. Patient has surgical history of CABG, cholecystectomy, appendectomy, hysterectomy, shoulder replacement, tonsillectomy. Reviewed Nurses Notes: Yes Hx Smoking: Yes (JUST A FEW YEARS SHE STATES) Smoking Status: Former Smoker Exposure to Second Hand Smoke?: No Hx Substance Use Disorder: No Hx Alcohol Use: Yes (OCC) Constitutional Vital Sign - Last 24 Hours 07/26/17 07/26/17 07/26/17 07/26/17 16:37 16:39 16:46 17:00 Pulse 75 67 Resp 20 23 B/P (MAP) 105/70 (82) 105/70 106/61 (76) Pulse Ox 82 97 O2 Delivery Room Air 07/26/17 07/26/17 07/26/17 07/26/17 17:01 17:16 17:31 17:45 Temp 97.7 Pulse 71 68 ??? Resp 19 20 Pulse Ox 98 97 07/26/17 07/26/17 07/26/17 07/26/17 17:46 17:52 18:00 18:01 Pulse ??? 64 Resp 20 B/P (MAP) 93/68 (76) 96/68 (77) Pulse Ox 96 07/26/17 07/26/17 07/26/17 07/26/17 18:06 18:21 18:30 18:36 Pulse 61 61 65 Resp 19 19 20 B/P (MAP) 101/65 (77) Pulse Ox 95 97 96 07/26/17 07/26/17 07/26/17 07/26/17 18:51 19:00 19:06 19:21 Pulse 61 61 73 Resp 46 19 21 B/P (MAP) 89/68 (75) Pulse Ox 97 97 99 07/26/17 07/26/17 19:30 19:36 Pulse 65 Resp 16 B/P (MAP) 106/69 (81) Pulse Ox 97 Physical Exam General Appearance: The patient is alert, has no immediate need for airway protection and no current signs of toxicity. Respiratory: Chest is non tender, lungs are clear to auscultation. Cardiac: regular rate and rhythm Gastrointestinal: Abdomen is soft and non tender, no masses, bowel sounds normal. Musculoskeletal: Neck: Neck is supple and non tender. Extremities have full range of motion and are non tender. Skin: No rashes or lesions. DIFFERENTIAL DIAGNOSIS: After history and physical exam differential diagnosis was considered for altered mental status including but not limited to hypoglycemia, infectious process, electrolyte abnormality, head injury and intoxicants. Medical Decision Making Data Points Result Diagram: 07/26/17 1658 07/26/17 165 Laboratory Hematology Test 07/26/17 16:58 07/26/17 17:09 07/26/17 17:25 07/26/17 18:24 Red Blood Count 5.36 M/uL (4.17-5.56) Mean Corpuscular Volume 89.9 fL (80.0-96.0) Mean Corpuscular Hemoglobin 30.0 pg (26.0-33.0) Mean Corpuscular Hemoglobin Concent 33.3 g/dL (32.0-36.0) Red Cell Distribution Width 16.0 % (11.5-14.5) Mean Platelet Volume 8.9 fL (7.2-11.1) Neutrophils (%) (Auto) 69.2 % (39.4-72.5) Lymphocytes (%) (Auto) 13.3 % (17.6-49.6) Monocytes (%) (Auto) 16.6 % (4.1-12.4) Eosinophils (%) (Auto) 0.2 % (0.4-6.7) Basophils (%) (Auto) 0.7 % (0.3-1.4) Nucleated RBC Relative Count (auto) 0.1 /100WBC Neutrophils # (Auto) 2.9 K/uL (2.0-7.4) Lymphocytes # (Auto) 0.6 K/uL (1.3-3.6) Monocytes # (Auto) 0.7 K/uL (0.3-1.0) Eosinophils # (Auto) 0.0 K/uL (0.0-0.5) Basophils # (Auto) 0.0 K/uL (0.0-0.1) Nucleated RBC Absolute Count (auto) 0.00 K/uL Sodium Level 130 mmol/L (137-145) Potassium Level 4.9 mmol/L (3.5-5.0) Chloride Level 96 mmol/L (98-107) Carbon Dioxide Level 27 mmol/L (22-31) Blood Urea Nitrogen 27 mg/dl (7-18) Creatinine 0.80 mg/dl (0.52-1.04) Glomerular Filtration Rate Calc > 60.0 Random Glucose 202 mg/dl (75-110) Calcium Level 8.8 mg/dl (8.4-10.2) Total Bilirubin 1.3 mg/dl (0.2-1.3) Aspartate Amino Transf (AST/SGOT) 50 U/L (0-35) Alanine Aminotransferase (ALT/SGPT) 82 U/L (0-56) Alkaline Phosphatase 100 U/L (0-126) Ammonia 12 UMOL/L (9-33) Troponin I 0.023 ng/ml B-Type Natriuretic Peptide 1210 pg/ml (0-100) Total Protein 5.8 gm/dl (6.3-8.2) Albumin 3.2 g/dl (3.5-5.0) Serum Alcohol < 10 mg/dl Whole Blood Glucose 191 mg/DL (75-110) Blood Gas Puncture Site Right radial Blood Gas Patient Temperature 97.8 DEGREES Arterial Blood pH 7.57 (7.35-7.45) Arterial Blood Partial Pressure CO2 26 mmHg (32-37) Arterial Blood Partial Pressure O2 38 mmHg (60-80) Arterial Blood HCO3 24 mmol/L (20-26) Arterial Blood Oxygen Saturation 81 % (92-100) Arterial Blood Base Excess 2.0 mmol/L Jonn Test Acceptable Oxygen Liters/Minute 5l Urine Color Yellow Urine Clarity Clear Urine pH 6.0 pH (4.8-9.5) Urine Specific [place] 1.010 Urine Protein Negative mg/dL (NEGATIVE) Urine Glucose (UA) Negative mg/dL (NEGATIVE) Urine Ketones Negative mg/dL (NEGATIVE) Urine Blood Small (NEGATIVE) Urine Nitrite Positive (NEGATIVE) Urine Bilirubin Negative (NEGATIVE) Urine Urobilinogen Negative mg/dL (0.2-1.9) Urine Leukocyte Esterase Small (NEGATIVE) Urine RBC 1 /HPF (0-2/HPF) Urine WBC 19 /HPF (0-5/HPF) Urine Squamous Epithelial Cells Moderate /LPF (</=FEW) Urine Bacteria Few /HPF (NONE-FEW) Urine Hyaline Casts Few /LPF (NONE-FEW) Urine Mucus None /HPF (NONE-FEW) Urine Opiates Screen Negative Urine Barbiturates Screen Negative Ur Tricyclic Antidepressants Screen Negative Urine Phencyclidine Screen Negative Urine Amphetamines Screen Negative Urine Benzodiazepines Screen Negative Urine Cocaine Screen Negative Urine Cannabinoids Screen Negative Chemistry Test 07/26/17 16:58 07/26/17 17:09 07/26/17 17:25 07/26/17 18:24 White Blood Count 4.2 k/uL (4.5-11.0) Red Blood Count 5.36 M/uL (4.17-5.56) Hemoglobin 16.1 g/dL (12.0-16.0) Hematocrit 48.2 % (34.0-47.0) Mean Corpuscular Volume 89.9 fL (80.0-96.0) Mean Corpuscular Hemoglobin 30.0 pg (26.0-33.0) Mean Corpuscular Hemoglobin Concent 33.3 g/dL (32.0-36.0) Red Cell Distribution Width 16.0 % (11.5-14.5) Platelet Count 180 K/uL (150-450) Mean Platelet Volume 8.9 fL (7.2-11.1) Neutrophils (%) (Auto) 69.2 % (39.4-72.5) Lymphocytes (%) (Auto) 13.3 % (17.6-49.6) Monocytes (%) (Auto) 16.6 % (4.1-12.4) Eosinophils (%) (Auto) 0.2 % (0.4-6.7) Basophils (%) (Auto) 0.7 % (0.3-1.4) Nucleated RBC Relative Count (auto) 0.1 /100WBC Neutrophils # (Auto) 2.9 K/uL (2.0-7.4) Lymphocytes # (Auto) 0.6 K/uL (1.3-3.6) Monocytes # (Auto) 0.7 K/uL (0.3-1.0) Eosinophils # (Auto) 0.0 K/uL (0.0-0.5) Basophils # (Auto) 0.0 K/uL (0.0-0.1) Nucleated RBC Absolute Count (auto) 0.00 K/uL Glomerular Filtration Rate Calc > 60.0 Calcium Level 8.8 mg/dl (8.4-10.2) Total Bilirubin 1.3 mg/dl (0.2-1.3) Aspartate Amino Transf (AST/SGOT) 50 U/L (0-35) Alanine Aminotransferase (ALT/SGPT) 82 U/L (0-56) Alkaline Phosphatase 100 U/L (0-126) Ammonia 12 UMOL/L (9-33) Troponin I 0.023 ng/ml B-Type Natriuretic Peptide 1210 pg/ml (0-100) Total Protein 5.8 gm/dl (6.3-8.2) Albumin 3.2 g/dl (3.5-5.0) Serum Alcohol < 10 mg/dl Whole Blood Glucose 191 mg/DL (75-110) Blood Gas Puncture Site Right radial Blood Gas Patient Temperature 97.8 DEGREES Arterial Blood pH 7.57 (7.35-7.45) Arterial Blood Partial Pressure CO2 26 mmHg (32-37) Arterial Blood Partial Pressure O2 38 mmHg (60-80) Arterial Blood HCO3 24 mmol/L (20-26) Arterial Blood Oxygen Saturation 81 % (92-100) Arterial Blood Base Excess 2.0 mmol/L Jonn Test Acceptable Oxygen Liters/Minute 5l Urine Color Yellow Urine Clarity Clear Urine pH 6.0 pH (4.8-9.5) Urine Specific [place] 1.010 Urine Protein Negative mg/dL (NEGATIVE) Urine Glucose (UA) Negative mg/dL (NEGATIVE) Urine Ketones Negative mg/dL (NEGATIVE) Urine Blood Small (NEGATIVE) Urine Nitrite Positive (NEGATIVE) Urine Bilirubin Negative (NEGATIVE) Urine Urobilinogen Negative mg/dL (0.2-1.9) Urine Leukocyte Esterase Small (NEGATIVE) Urine RBC 1 /HPF (0-2/HPF) Urine WBC 19 /HPF (0-5/HPF) Urine Squamous Epithelial Cells Moderate /LPF (</=FEW) Urine Bacteria Few /HPF (NONE-FEW) Urine Hyaline Casts Few /LPF (NONE-FEW) Urine Mucus None /HPF (NONE-FEW) Urine Opiates Screen Negative Urine Barbiturates Screen Negative Ur Tricyclic Antidepressants Screen Negative Urine Phencyclidine Screen Negative Urine Amphetamines Screen Negative Urine Benzodiazepines Screen Negative Urine Cocaine Screen Negative Urine Cannabinoids Screen Negative Toxicology Test 07/26/17 16:58 07/26/17 18:24 Serum Alcohol < 10 mg/dl Urine Opiates Screen Negative Urine Barbiturates Screen Negative Ur Tricyclic Antidepressants Screen Negative Urine Phencyclidine Screen Negative Urine Amphetamines Screen Negative Urine Benzodiazepines Screen Negative Urine Cocaine Screen Negative Urine Cannabinoids Screen Negative Urinalysis Test 07/26/17 18:24 Urine Color Yellow Urine Clarity Clear Urine pH 6.0 pH (4.8-9.5) Urine Specific [place] 1.010 Urine Protein Negative mg/dL (NEGATIVE) Urine Glucose (UA) Negative mg/dL (NEGATIVE) Urine Ketones Negative mg/dL (NEGATIVE) Urine Blood Small (NEGATIVE) Urine Nitrite Positive (NEGATIVE) Urine Bilirubin Negative (NEGATIVE) Urine Urobilinogen Negative mg/dL (0.2-1.9) Urine Leukocyte Esterase Small (NEGATIVE) Urine RBC 1 /HPF (0-2/HPF) Urine WBC 19 /HPF (0-5/HPF) Urine Squamous Epithelial Cells Moderate /LPF (</=FEW) Urine Bacteria Few /HPF (NONE-FEW) Urine Hyaline Casts Few /LPF (NONE-FEW) Urine Mucus None /HPF (NONE-FEW) EKG/Imaging EKG Interpretation 12 lead EKG: Rhythm: normal sinus rhythm with PACs, ventricular rate of 73 bpm [place]: normal QRS: normal ST segments: normal Imaging CHEST SINGLE AP Indication: Altered mental status.. Comparison: 07/20/2017. Findings: Cardiac silhouette remains enlarged but unchanged. Mediastinal silhouette within normal limits. Sternotomy changes. The central pulmonary arteries again mildly enlarged with distal tapering silhouette appears examination. This nonspecific but could be due to pulmonary artery hypertension. There is no focal infiltrate or lobar consolidation. No pneumothorax or pleural effusion. No nodule. Upper abdomen is unremarkable. No acute bony abnormality. The left shoulder arthroplasty without sequelae. IMPRESSION: 1. Stable enlarged cardiac silhouette without edema or infiltrate. Report Dictated By: Chriss La at 07/26/2017 6:08 PM Report E-Signed By: Chriss La at 07/26/2017 6:[address] Head without contrast Indication: Altered mental status. Comparison: MRI the brain on 02/22/2017. Technique: Axial CT images were obtained through the brain from the skull base to the vertex without administration of IV contrast. Reformatted coronal and sagittal images were also obtained. One of the following dose optimization techniques was utilized in the performance of this exam: automated exposure control; adjustment of the mA and/ or kV according to the patient's size; or use of an iterative reconstruction technique. Specific details can be referenced in the facility's radiology CT exam operational policy. Findings: No evidence of mass, mass effect, or midline shift. No acute intracranial hemorrhage or acute territorial infarction. No extra axial fluid collection or hydrocephalus. Age-related cerebral atrophy. Periventricular white matter ischemic changes consistent small vessel disease. [place]/white matter differentiation appears normal. Mild bilateral internal carotid artery calcific lesions are present. Bony structures show no fractures or lesions. Mucosal thickening/fluid seen in the left maxillary sinus. The remaining sinuses and mastoids visualized are clear. IMPRESSION: 1. Senescent changes without acute abnormality. 2. Left maxillary sinus disease. Report Dictated By: Chriss La at 07/26/2017 6:03 PM Report E-Signed By: Chriss La at 07/26/2017 6:08 PM ED Course/Re-evaluation ED Course Patient was managed exam room, history and physical were obtained. Differential diagnoses were considered. A CBC, CMP, ammonia, alcohol, arterial blood gas, urinalysis, drug sheet were obtained. Patient had a negative alcohol, Dr. negative drug screen, patient had low PO2 on her ABG and will slightly basic. Ammonia was negative, CBC showed a white count 4.2, CMP was unremarkable. Troponin was 0.023, which consistent with last time she was in the emergency room at 0.022. Urinalysis positive for nitrites, as well as leukocyte esterase. Patient had 19 white cells per high-power field. A urine culture was ordered. I spoke with the patient and her daughter. Patient's daughter does not feel patient can get the treatment that she needs at home even with her on a oral meds. We will go ahead and speak with Dr. Mcdermott, hospitalist. Dr. Mcdermott did come down and evaluate the patient and agreed to accept the patient for admission. He requested that a flu screen be done. That was ordered. Decision to Disposition Date: Jul 26, 2017 Decision to Disposition Time: 19:52 Depart Departure Latest Vital Signs Vital Signs Date Time Temp Pulse Resp B/P (MAP) Pulse Ox O2 Delivery O2 Flow Rate FiO2 07/26/17 19:36 65 16 97 07/26/17 19:30 106/69 (81) 07/26/17 17:45 97.7 07/26/17 16:39 Room Air Impression: Primary Impression: UTI (urinary tract infection) Additional Impression: Altered mental status Condition: Condition Unchanged Disposition: Admitted from ER Referrals: GUALBERTO DANIELLE MD (PCP) Problem Qualifiers Primary Impression: UTI (urinary tract infection) Urinary tract infection type: acute cystitis Hematuria presence: without hematuria Qualified Codes: N30.00 - Acute cystitis without hematuria Additional Impression: Altered mental status Altered mental status type: unspecified Qualified Codes: R41.82 - Altered mental status, unspecified LUISA LUNA Jul 26, 2017 16:45
[2017-07-26] MEDS ORDERED: NS(*) 0.9% 500 ML BAG 500 ML IV ONE (17:00)
[2017-07-26 17:18] LABS: PLATELET COUNT, AUTOMATED 180 K/uL (150-450)
--- NOTE | 2017-07-26 17:20 | EKG ---
FACILITY: [facility] PATIENT NAME: MATEUS BARRETT : [id number] MR: [id number] V: [id number] EXAM DATE: ORDERING PHYSICIAN: LUISA LUNA TECHNOLOGIST: Mitch Winters Reason : Blood Pressure : / mmHG Vent. Rate : 073 BPM Atrial Rate : 073 BPM P-R Int : 144 ms QRS Dur : 142 ms QT Int : 482 ms P-R-T Axes : 080 060 222 degrees QTc Int : 531 ms Sinus rhythm with premature atrial complexes Left bundle branch block When compared with ECG of 20-JUL-2017 12:01, Sinus rhythm has replaced Atrial fibrillation Vent. rate has decreased BY 64 BPM Confirmed by DAVID BUTLER ([id number]) on 07/26/2017 8:02:38 PM Referred By: Confirmed By:DAVID BUTLER
--- NOTE | 2017-07-26 18:12 | RADIOLOGY IMAGING REPORT ---
FACILITY: [facility] PATIENT NAME: Argenis Jones : 1930 MR: [id number] V: [id number] EXAM DATE: ORDERING PHYSICIAN: LUISA LUNA TECHNOLOGIST: Location: [facility] Patient: Aregnis Jones : 1930 Visit/Account:[id number] Date of Sevice: 07/26/2017 CT Head without contrast Indication: Altered mental status. Comparison: MRI the brain on 02/22/2017. Technique: Axial CT images were obtained through the brain from the skull base to the vertex without administration of IV contrast. Reformatted coronal and sagittal images were also obtained. One of the following dose optimization techniques was utilized in the performance of this exam: autom ated exposure control; adjustment of the mA and/or kV according to the patient's size; or use of an i terative reconstruction technique. Specific details can be referenced in the facility's radiology CT exam operational policy. Findings: No evidence of mass, mass effect, or midline shift. No acute intracranial hemorrhage or acute territorial infarction. No extra axial fluid collection or hydrocephalus. Age-related cerebral atrophy. Periventricular white matter ischemic changes consistent small vessel disease. Colind[place]/white matter differentiation appears n ormal. Mild bilateral internal carotid artery calcific lesions are present. Bony structures show no fractures or lesions. Mucosal thickening/fluid seen in the left maxillary sinus. The remaining sinuses and mastoids visuali zed are clear. IMPRESSION: 1. Senescent changes without acute abnormality. 2. Left maxillary sinus disease. Report Dictated By: Chriss La at 07/26/2017 6:03 PM Report E-Signed By: Chriss La at 07/26/2017 6:08 PM WSN:[id number]
--- NOTE | 2017-07-26 18:13 | RADIOLOGY IMAGING REPORT ---
FACILITY: [facility] PATIENT NAME: Argenis Jones : 1930 MR: [id number] V: [id number] EXAM DATE: ORDERING PHYSICIAN: LUISA LUNA TECHNOLOGIST: Location: [facility] - [place] Patient: Argenis Jones : 1930 Visit/Account:[id number] Date of Sevice: 07/26/2017 CHEST SINGLE AP Indication: Altered mental status.. Comparison: 07/20/2017. Findings: Cardiac silhouette remains enlarged but unchanged. Mediastinal silhouette within normal limits. Koenig otomy changes. The central pulmonary arteries again mildly enlarged with distal tapering silhouette appears examination. This nonspecific but could be due to pulmonary artery hypertension. There is no focal infiltrate or lobar consolidation. No pneumothorax or pleural effusion. No nodule. Upper abdomen is unremarkable. No acute bony abnormality. The left shoulder arthroplasty w ithout sequelae. IMPRESSION: 1. Stable enlarged cardiac silhouette without edema or infiltrate. Report Dictated By: Chriss La at 07/26/2017 6:08 PM Report E-Signed By: Chriss La at 07/26/2017 6:10 PM WSN:[id number]
--- NOTE | 2017-07-26 20:54 | History & Physical ---
History of Present Illness History of Present Illness 87yo female with reduced EF HF, intermittent atrial fibrillation and CAD who came to the ER for confusion. She was discharged from [facility] 5 days ago for atrial fibrillation with RVR. She had metoprolol tartrate and diltiazem added. A urine culture from that admission grew Klebsiella pneumonia, but the UA showed 1-4 wbc. Her daughter has been sick for a couple of days, so didn't come to visit until today. The patient was very confused and sleepy. The daughter had difficulty keeping her awake. She did not note any focal weakness in the extremities of facial droop. She was able to get the patient to walk to her car. The patient is without any complaints. She does live with her , but he has a lot of medical issues and she takes care of him. She has had a productive cough for a couple of weeks, but it may be worse today. In the ER, the patient was given 500cc of NS. History Problems: (1) Closed comminuted left humeral fracture Status: Chronic (2) Pulmonary embolism Status: Chronic (3) Ascending aortic aneurysm Status: Chronic (4) Atrial fibrillation Status: Chronic (5) CAD (coronary artery disease) Status: Chronic (6) Hypothyroidism Status: Chronic (7) Diabetes mellitus, type 2 Status: Chronic Home Meds Active Scripts Warfarin Sodium (WARFARIN SODIUM) 5 Mg Tablet, 1 TAB PO QDAY, #30 TAB Prov:GUALBERTO DANIELLE MD 05/28/17 Furosemide (FUROSEMIDE) 20 Mg Tablet, 20 MG PO QDAY, #30 TAB 3 Refills Prov:GUALBERTO DANIELLE MD 05/09/17 Potassium Chloride (POTASSIUM CHLORIDE) 20 Meq Tab.er.prt, 20 MEQ PO QODAY, #15 TAB 3 Refills Prov:GUALBERTO DANIELLE MD 03/29/17 Levothyroxine Sodium (LEVOTHYROXINE SODIUM) 25 Mcg Tablet, 1 TAB PO QDAY, #90 TAB 2 Refills Prov:GUALBERTO DANIELLE MD 02/22/17 Losartan Potassium (LOSARTAN POTASSIUM) 25 Mg Tablet, 25 MG PO QDAY, #90 TAB 4 Refills Prov:GUALBERTO DANIELLE MD 02/21/17 Aspirin (ASPIR 81) 81 Mg Tablet.dr, 81 MG PO QDAY, #90 TAB 3 Refills Prov:GUALBERTO DANIELLE MD 02/19/17 Metformin Hcl (METFORMIN HCL ER) 500 Mg Tab.er.24, 2 TAB PO QDAY, #60 TAB 4 Refills Prov:GUALBERTO DANIELLE MD 01/31/17 Blood Sugar Diagnostic (ONE TOUCH ULTRA TEST STRIPS) 1 Each Strip, 1 EACH MC QDAY, #100 STRIP 3 Refills Use once a day to test blood sugar Prov:GUALBERTO DANIELLE MD 11/03/16 Lancets (ONE TOUCH LANCETS) 1 Each Each, 1 EACH MC QDAY, #100 3 Refills Use once a day to test blood sugar Prov:GUALBERTO DANIELLE MD 11/03/16 Blood-Glucose Meter (ONE TOUCH ULTRA 2) 1 Each Kit, 1 EACH MC QDAY, #1 Use once a day to test blood sugar Prov:GUALBERTO DANIELLE MD 11/03/16 Reported Medications Metoprolol Tartrate (METOPROLOL TARTRATE) 25 Mg Tablet, 1 TAB PO BID, TAB 07/21/17 Diltiazem Hcl (CARDIZEM CD) 180 Mg Cap.er.24h, 180 MG PO DAILY 07/21/17 Discontinued Scripts Atorvastatin Calcium (ATORVASTATIN CALCIUM) 10 Mg Tablet, 1 TAB PO QHS, #90 TAB 0 Refills Prov:GUALBERTO DANIELLE MD 05/15/17 Allergies: Coded Allergies: Sulfa (Sulfonamide Antibiotics) (Unverified Allergy, Severe, HIVES, ) procaine (Verified Allergy, Severe, ITCHING, RESP PROBLEMS, HIVES, 08/14/15 ) Penicillins (Verified Allergy, Unknown, UNKNOWN, 08/14/15) Patient History: FH: breast cancer BROTHER OR SISTER, Age:Unk (One sister with Breast Cancer) Aunt, Age:Unk Hx Smoking: Yes (JUST A FEW YEARS SHE STATES) Smoking Status: Former Smoker Exposure to Second Hand Smoke?: No Caffeine Intake: Coffee Caffeine/Cups Per Day: 1 Hx Alcohol Use: Yes (OCC) Hx Substance Use Disorder: No Social Drug Use: Never Review of Systems All Systems Reviewed/Normal: Yes, Except as Noted Exam Vital Signs Vital Signs Date Time Temp Pulse Resp B/P (MAP) Pulse Ox O2 Delivery O2 Flow Rate FiO2 07/26/17 19:36 65 16 97 07/26/17 19:30 106/69 (81) 07/26/17 17:45 97.7 07/26/17 16:39 Room Air General Appearance: Awake, No Acute Distress, Other (She is slow to respond.) Neuro: No Gross deficits (but she is looks to her daughter when asked questions. She knows she is in the hospital, but doesn't know why. She doesn' t know the date. Equal strength in extremities. Follows commands. ) Eyes: PERRLA ENT: Moist Mucous Membranes Cardiovascular: Regular Rate and Rhythm Respiratory: Clear to Auscultation GI: Abd Soft and Non-Tender Extremities: Edema (1+ pitting to thighs) Integumentary: No Jaundice, No Cyanosis Medical Decision Making Data Points Result Diagram: 07/26/17 1658 07/26/17 1658 Item Value Date Time B-Type Natriuretic Peptide 1210 pg/ml H 07/26/17 1658 B-Type Natriuretic Peptide 1620 pg/ml H 07/20/17 1220 Thyroid Stimulating Hormone (TSH) 4.11 uIU/ml 07/20/17 1220 Troponin I 0.023 ng/ml 07/26/17 1658 Ammonia 12 UMOL/L 07/26/17 1658 Total Bilirubin 1.3 mg/dl 07/26/17 1658 Aspartate Amino Transf (AST/SGOT) 50 U/L H 07/26/17 1658 Alanine Aminotransferase (ALT/SGPT) 82 U/L H 07/26/17 1658 Alkaline Phosphatase 100 U/L 07/26/17 1658 Creatinine 0.80 mg/dl 07/26/17 1658 Blood Urea Nitrogen 27 mg/dl H 07/26/17 1658 Blood Urea Nitrogen 24 mg/dl H 07/21/17 0650 Creatinine 0.90 mg/dl 07/21/17 0650 White Blood Count 4.2 k/uL L 07/26/17 1658 Neutrophils (%) (Auto) 69.2 % 07/26/17 1658 Lymphocytes (%) (Auto) 13.3 % L 07/26/17 1658 Monocytes (%) (Auto) 16.6 % H 07/26/17 1658 Influenza Type A Antigen Positive 07/26/171952 Influenza Type B Antigen Negative 07/26/171952 Urine WBC 19 /HPF 07/26/17 1824 Urine Squamous Epithelial Cells Moderate /LPF H 07/26/17 1824 Urine Bacteria Few /HPF 07/26/17 1824 Urine Hyaline Casts Few /LPF 07/26/17 1824 Urine Nitrite Positive H 07/26/17 1824 Urine Leukocyte Esterase Small H 07/26/17 1824 Serum Alcohol < 10 mg/dl 07/26/17 1658 Prothromb Time International Ratio 2.25 07/21/17 0922 EKG / Imaging EKG Interpretation Vent. Rate : 073 BPM Atrial Rate : 073 BPM P-R Int : 144 ms QRS Dur : 142 ms QT Int : 482 ms P-R-T Axes : 080 060 222 degrees QTc Int : 531 ms Sinus rhythm with premature atrial complexes Left bundle branch block When compared with ECG of 20-JUL-2017 12:01, Sinus rhythm has replaced Atrial fibrillation Vent. rate has decreased BY 64 BPM Confirmed by DAVID BUTLER ([id number]) on 07/26/2017 8:02:38 PM Imaging CXR - 1. Stable enlarged cardiac silhouette without edema or infiltrate. Head CT - 1. Senescent changes without acute abnormality. 2. Left maxillary sinus disease. Assessment and Plan Problems: (1) Altered mental status Status: Acute Assessment & Plan: She presented with confusion and somnolence for an unknown amount of time. She has pyuria on UA and is testing positive for Influenza A. No focal deficits on neurologic exam, but she is confused to date and why she is in the hospital. Will treat underlying infections. See below. (2) Influenza A Status: Acute Assessment & Plan: Her daughter and have just developed a cough and feeling run down. The patient has had a cough for a couple weeks, but her daughter thought it was worse today. No reported fevers or chills. Will treat with Tamiflu and give at renal dosing. (3) UTI (urinary tract infection) Status: Acute Assessment & Plan: Pyuria on UA. Urine culture from 07/20 grew Klebsiella pneumonia, but that UA only had a few wbc. She will be started on Ceftriaxone ( she has taken Keflex in the past without problems). Urine and blood cultures pending. (4) Atrial fibrillation Status: Chronic Assessment & Plan: She is a normal sinus rhythm currently, but appears to have short runs of atrial fibrillation on telemetry. Because of the reduced EF HF, will stop diltiazem and switch metoprolol tartrate to Toprol. Continue warfarin and check INR daily. (5) CAD (coronary artery disease) Status: Chronic Assessment & Plan: She is on a BB. See above. Will hold ASA for now and check the INR tomorrow. Will defer to her PCP about continuing ASA while on warfarin. (6) Congestive heart failure Status: Chronic Assessment & Plan: EF was 23% in October of 2016. Changing to Toprol, as above. Continue Lasix and Losartan with BP parameters. BNP is 1210, but was 1620 on 07/20. She does have pitting edema, but lungs are clear. Will fluid restrict, check daily weights and stop diltiazem. (7) Hypothyroidism Status: Chronic Assessment & Plan: Continue levothyroxine. TSH was 4.11 on 07/20/17. (8) Diabetes mellitus, type 2 Status: Chronic Assessment & Plan: Because of the CHF, will hold metformin and consider d/c' ng. Will treat with SSI level 2 for now. Copies to: GUALBERTO DANIELLE MD Venous Thromboembolism Antithrombotics Is Pt On Any Antithrombotics?: Yes Heart Failure Ejection Fraction %: 23 NYHA Class: III Is Patient on BRET Inhibitor?: Yes Is Patient on Beta Viktor?: Yes Admission Weight: 80 Exam Sepsis Risk: No Definite Risk Problem Qualifiers (1) Altered mental status: Altered mental status type: unspecified Qualified Codes: R41.82 - Altered mental status, unspecified (2) UTI (urinary tract infection): Urinary tract infection type: acute cystitis Hematuria presence: without hematuria Qualified Codes: N30.00 - Acute cystitis without hematuria (3) Congestive heart failure: Congestive heart failure type: systolic DAVID BUTLER MD Jul 26, 2017 20:54
[2017-07-26 20:55] VITALS: BP 109/71
[2017-07-26] MEDS ORDERED: NS(*) 0.9% 500 ML BAG 500 ML IV PRN (21:00)
[2017-07-26] MEDS: cefTRIAXone 1 GM VIAL IVP SCH (21:04)
[2017-07-26] MEDS: OSELTAMIVIR PHOS 30 MG CAP PO SCH (21:04)
[2017-07-26] MEDS: MELATONIN 3 MG TAB PO SCH (21:05)
[2017-07-26] MEDS: INSULIN HUM LISPRO 100 UN/ML 3 ML VIAL SUBQ PRN (21:09)
[2017-07-26 23:29] VITALS: BP 90/57
[2017-07-27 04:02] VITALS: BP 101/74
[2017-07-27] MEDS: LEVOTHYROXINE SOD 0.025 MG TAB PO SCH (06:07)
[2017-07-27 06:17] LABS: PLATELET COUNT, AUTOMATED 123 K/uL (150-450)
[2017-07-27 06:29] LABS: INR 4.46
[2017-07-27 08:05] VITALS: BP 105/71
[2017-07-27 08:11] VITALS: BMI 25.4
[2017-07-27] MEDS: FUROSEMIDE 20 MG TAB PO SCH (09:21)
[2017-07-27] MEDS: LOSARTAN POTASSIUM 50 MG TAB PO SCH (09:21)
[2017-07-27] MEDS: OSELTAMIVIR PHOS 30 MG CAP PO SCH ×2 (09:21→21:20)
[2017-07-27] MEDS: METOPROLOL SUCC XL 50 MG TABCR 50 MG TAB.ER.24H PO SCH (09:21)
--- NOTE | 2017-07-27 11:25 | Hospitalist Progress Note ---
Subjective Progress Notes Subjective This patient was admitted for altered mental status. She had no acute events overnight. Patient Complains of: Cardiovascular: No: Chest Pain Respiratory: No: Shortness of Breath Physical Exam Vital Signs Date Time Temp Pulse Resp B/P (MAP) Pulse Ox O2 Delivery O2 Flow Rate FiO2 07/27/17 08:10 98 Nasal Cannula 2.5 07/27/17 08:05 97.6 62 16 105/71 (82) Cardiovascular: Regular Rate and Rhythm Respiratory: Clear to Auscultation Result Diagram: 07/27/1751907/27/17519 Item Value Date Time Influenza Type A Antigen Positive 07/26/171952 Item Value Date Time Prothromb Time International Ratio 4.46 07/27/17519 Assessment and Plan Problems: (1) Altered mental status Status: Acute Assessment & Plan: She presented with confusion and somnolence. A CT scan of the head was negative. Her mentation is improving, but she is not yet at baseline. Therapy consults have been ordered. (2) Influenza A Status: Acute Assessment & Plan: She did test positive for influenza. We have started her on Tamiflu. (3) UTI (urinary tract infection) Status: Acute Assessment & Plan: She did have pyuria on a contaminated sample from admission , but a better sample from 07/20 did grow Klebsiella. She is on treatment with ceftriaxone a culture from admission is pending. (4) Atrial fibrillation Status: Chronic Assessment & Plan: She was on chronic treatment with diltiazem, metoprolol, and warfarin. Her diltiazem has been discontinued. Her INR is increased today. We have held her warfarin and decreased her dose for tomorrow. (5) CAD (coronary artery disease) Status: Chronic Assessment & Plan: She is on chronic treatment with aspirin, which is currently on hold. (6) Congestive heart failure Status: Chronic Assessment & Plan: She does have a documented ejection fraction of 23% from October 2016. She is on chronic treatment with Lasix and losartan. Daily weights are stable. (7) Hypothyroidism Status: Chronic Assessment & Plan: She is on chronic treatment with Synthroid. (8) Diabetes mellitus, type 2 Status: Chronic Assessment & Plan: She had been on chronic treatment with metformin, but this was stopped secondary to her chronic heart failure. She is currently on sliding scale level #2. We will monitor her requirements and add treatment as indicated. Heart Failure Ejection Fraction %: 23 NYHA Class: III Is Patient on BRET Inhibitor?: Yes Is Patient on Beta Viktor?: Yes Admission Weight: 80 Exam Sepsis Risk: No Definite Risk Problem Qualifiers (1) Altered mental status: Altered mental status type: unspecified Qualified Codes: R41.82 - Altered mental status, unspecified (2) UTI (urinary tract infection): Urinary tract infection type: acute cystitis Hematuria presence: without hematuria Qualified Codes: N30.00 - Acute cystitis without hematuria (3) Congestive heart failure: Congestive heart failure type: systolic ANTHONY MENA DO Jul 27, 2017 11:25
[2017-07-27 11:47] VITALS: BP 111/94
[2017-07-27] MEDS ORDERED: WARFARIN SOD 5 MG TAB PO SCH (13:00)
[2017-07-27 15:22] VITALS: BP 86/70
[2017-07-27] MEDS: MELATONIN 3 MG TAB PO SCH (21:19)
[2017-07-27] MEDS: cefTRIAXone 1 GM VIAL IVP SCH (21:21)
[2017-07-27] MEDS: INSULIN HUM LISPRO 100 UN/ML 3 ML VIAL SUBQ PRN (21:25)
[2017-07-28 02:40] VITALS: BP 97/90
[2017-07-28 06:01] LABS: PLATELET COUNT, AUTOMATED 124 K/uL (150-450)
[2017-07-28 06:03] LABS: INR 4.43
[2017-07-28] MEDS: LEVOTHYROXINE SOD 0.025 MG TAB PO SCH ×2 (06:13→07:04)
[2017-07-28 07:01] VITALS: BP 108/70
[2017-07-28] MEDS: METOPROLOL SUCC XL 50 MG TABCR 50 MG TAB.ER.24H PO SCH (08:39)
[2017-07-28] MEDS: LOSARTAN POTASSIUM 50 MG TAB PO SCH (08:40)
[2017-07-28] MEDS: FUROSEMIDE 20 MG TAB PO SCH (08:40)
[2017-07-28] MEDS: OSELTAMIVIR PHOS 30 MG CAP PO SCH ×2 (08:40→21:01)
[2017-07-28 12:00] VITALS: BP 79/58
[2017-07-28] MEDS: INSULIN HUM LISPRO 100 UN/ML 3 ML VIAL SUBQ PRN (12:05)
[2017-07-28] MEDS: POTASSIUM CHL 20 MEQ TABCR PO SCH (12:05)
[2017-07-28] MEDS: CEFUROXIME AXETIL 250 MG TAB PO SCH ×2 (12:05→21:01)
[2017-07-28 12:15] VITALS: BP 92/61
[2017-07-28] MEDS ORDERED: WARFARIN SOD 2.5 MG TAB PO SCH (13:00)
--- NOTE | 2017-07-28 13:01 | Hospitalist Progress Note ---
Subjective Progress Notes Subjective The patient has pulled out her IV. She denies new complaints. Physical Exam Vital Signs Date Time Temp Pulse Resp B/P (MAP) Pulse Ox O2 Delivery O2 Flow Rate FiO2 07/28/17 12:15 92/61 (71) 07/28/17 12:00 98.0 90 16 96 Nasal Cannula 2.0 Intake and Output 07/29/17 07:01 Intake Total 180 ml Balance 180 ml Intake Oral 180 ml # Voids 1 # Bowel Movements 1 General Appearance: Alert, Awake, No Acute Distress, Afebrile Neuro: Other (Some short term mem) Cardiovascular: Regular Rate and Rhythm Respiratory: Other (Scattered rhonchi, diffuse. Mild increased work of breathing.) GI: Soft and Non-Tender Extremities: Warm, Perfused Integumentary: Skin Intact without Lesion / Mass Psych: Appropriate Mood & Affect Result Diagram: 07/28/1752807/28/17528 Assessment and Plan Problems: (1) Altered mental status Status: Acute Assessment & Plan: She presented with confusion and somnolence. A CT scan of the head was negative. Her mentation is improving, but she is not yet at baseline. Therapy consults have been ordered. (2) Influenza A Status: Acute Assessment & Plan: She did test positive for influenza. We have started her on Tamiflu. Her initial CXR was negative. Will repeat today. (3) UTI (urinary tract infection) Status: Acute Assessment & Plan: She did have pyuria on a contaminated sample from admission , but a better sample from 07/20 did grow Klebsiella. She is on treatment with ceftriaxone based on a previous culture. A culture from admission is pending. (4) Atrial fibrillation Status: Chronic Assessment & Plan: She was on chronic treatment with diltiazem, metoprolol, and warfarin. Her diltiazem has been discontinued. Her INR remains increased today. We have held her warfarin and decreased her dose for tomorrow. (5) CAD (coronary artery disease) Status: Chronic Assessment & Plan: She is on chronic treatment with aspirin, which is currently on hold due to elevated INR. (6) Congestive heart failure Status: Chronic Assessment & Plan: She does have a documented ejection fraction of 23% from October 2016. She is on chronic treatment with Lasix and losartan. Daily weights are stable. (7) Hypothyroidism Status: Chronic Assessment & Plan: She is on chronic treatment with Synthroid. (8) Diabetes mellitus, type 2 Status: Chronic Assessment & Plan: She had been on chronic treatment with metformin, but this was stopped secondary to her chronic heart failure. She is currently on sliding scale level #2. We will monitor her requirements and add treatment as indicated. Time Spent on Plan of Care: < 30 min Heart Failure Ejection Fraction %: 23 NYHA Class: III Is Patient on BRET Inhibitor?: Yes Is Patient on Beta Viktor?: Yes Admission Weight: 80 Exam Sepsis Risk: No Definite Risk Problem Qualifiers (1) Altered mental status: Altered mental status type: unspecified Qualified Codes: R41.82 - Altered mental status, unspecified (2) UTI (urinary tract infection): Urinary tract infection type: acute cystitis Hematuria presence: without hematuria Qualified Codes: N30.00 - Acute cystitis without hematuria (3) Congestive heart failure: Congestive heart failure type: systolic JUDY PRESTON MD Jul 28, 2017 13:01
--- NOTE | 2017-07-28 14:46 | RADIOLOGY IMAGING REPORT ---
FACILITY: [facility] PATIENT NAME: Argenis Jones : 1930 MR: [id number] V: [id number] EXAM DATE: ORDERING PHYSICIAN: JUDY PRESTON TECHNOLOGIST: Location: [facility] - [place] Patient: Argenis Jones : 1930 Visit/Account:[id number] Date of Sevice: 07/28/2017 CHEST SINGLE AP Indication: Influenza.. Comparison: 07/26/2017. Findings: Cardiac silhouette remains enlarged but unchanged. Sternotomy changes. These vessels within normal li mits. The central pulmonary vessels are again prominent with distal tapering, nonspecific but could b e due to pulmonary artery hypertension. There is no focal infiltrate or lobar consolidation. No pneumothorax or pleural effusion. Chronic interstitial changes. There is a faint nodular opacity seen in the right upper lobe which is not appreciated previously. No other opacities. Upper abdomen is unremarkable. No acute bony abnormal ity. IMPRESSION: 1. There is a new faint nodular opacity in the right upper lobe which could be due to early pneumonia . Suggest follow-up PA and lateral view chest x-ray to evaluate for clearing or other etiologies. 2. Stable enlarged cardiac silhouette without edema. Report Dictated By: Chriss La at 07/28/2017 2:40 PM Report E-Signed By: Chriss La at 07/28/2017 2:42 PM WSN:[id number]
[2017-07-28 14:59] VITALS: BP 95/65
[2017-07-28 19:51] VITALS: BP 109/67
[2017-07-28] MEDS: MELATONIN 3 MG TAB PO SCH (21:01)
[2017-07-29 05:15] VITALS: BP 103/67
[2017-07-29 05:57] LABS: PLATELET COUNT, AUTOMATED 123 K/uL (150-450)
[2017-07-29 06:04] LABS: INR 3.63
[2017-07-29] MEDS: LEVOTHYROXINE SOD 0.025 MG TAB PO SCH (06:34)
[2017-07-29 08:03] VITALS: BP 107/79
[2017-07-29] MEDS ORDERED: INFLUENZA VIRUS VAC 0.5 ML SYR IM ONLY ONE (09:00)
[2017-07-29] MEDS: POTASSIUM CHL 20 MEQ TABCR PO SCH (09:43)
[2017-07-29] MEDS: METOPROLOL SUCC XL 50 MG TABCR 50 MG TAB.ER.24H PO SCH (09:44)
[2017-07-29] MEDS: FUROSEMIDE 20 MG TAB PO SCH (09:44)
[2017-07-29] MEDS: CEFUROXIME AXETIL 250 MG TAB PO SCH ×2 (09:44→20:47)
[2017-07-29] MEDS: LOSARTAN POTASSIUM 50 MG TAB PO SCH (09:45)
[2017-07-29] MEDS: OSELTAMIVIR PHOS 30 MG CAP PO SCH ×2 (09:45→20:47)
[2017-07-29] MEDS: INSULIN HUM LISPRO 100 UN/ML 3 ML VIAL SUBQ PRN ×2 (11:51→20:51)
[2017-07-29 11:55] VITALS: BP 103/69
--- NOTE | 2017-07-29 13:14 | Hospitalist Progress Note ---
Subjective Progress Notes Subjective She is awake and alert. She reports feeling slightly improved. Physical Exam Vital Signs Date Time Temp Pulse Resp B/P (MAP) Pulse Ox O2 Delivery O2 Flow Rate FiO2 07/29/17 11:55 98.3 71 18 103/69 (80) 96 Nasal Cannula 2.5 Intake and Output 07/30/17 07:01 Intake Total 0 ml Balance 0 ml Intake Oral 0 ml # Voids 1 # Bowel Movements 1 General Appearance: Alert, Awake Cardiovascular: Regular Rate and Rhythm Respiratory: Other (few scattered rhonchi) GI: Soft and Non-Tender Extremities: Warm, Perfused Result Diagram: 07/29/17 0532 07/29/17 0532 Assessment and Plan Problems: (1) Altered mental status Status: Acute Assessment & Plan: Most likely due to UTI and Influenza. She presented with confusion and somnolence. CT scan of the head was negative. Her mentation is improving, but she is not yet at baseline. Therapy consults have been ordered. (2) Influenza A Status: Acute Assessment & Plan: She did test positive for influenza. We have started her on Tamiflu. Her initial CXR was negative. Repeat CXR yesterday had a faint abnormality in RUL. Will watch closely. (3) UTI (urinary tract infection) Status: Acute Assessment & Plan: She did have pyuria on a contaminated sample from admission , but a better sample from 07/20 did grow Klebsiella. She was initially placed on treatment with ceftriaxone based on this previous culture (she is now on oral cefuroxime). A culture from this admission is growing a GNR (I suspect it will be Klebsiella as well). (4) Atrial fibrillation Status: Chronic Assessment & Plan: She was in sinus rhythm on EKG at time of admit. She was on chronic treatment with diltiazem, metoprolol, and warfarin. Her diltiazem has been discontinued. Her INR remains slightly increased today. We have held her warfarin and decreased her dose to 1mg daily to start tomorrow. Watch protime/ INR. (5) CAD (coronary artery disease) Status: Chronic Assessment & Plan: She is on chronic treatment with aspirin, which is currently on hold due to elevated INR. (6) Congestive heart failure Status: Chronic Assessment & Plan: She does have a documented ejection fraction of 23% from October 2016. She is on chronic treatment with Lasix and losartan. Daily weights are stable. (7) Hypothyroidism Status: Chronic Assessment & Plan: She is on chronic treatment with Synthroid. (8) Diabetes mellitus, type 2 Status: Chronic Assessment & Plan: She had been on chronic treatment with metformin, but this was stopped secondary to her chronic heart failure. She is currently on sliding scale level #2. We will monitor her requirements and add treatment as indicated. Heart Failure Ejection Fraction %: 23 NYHA Class: III Is Patient on BRET Inhibitor?: Yes Is Patient on Beta Viktor?: Yes Admission Weight: 80 Exam Sepsis Risk: No Definite Risk Problem Qualifiers (1) Altered mental status: Altered mental status type: unspecified Qualified Codes: R41.82 - Altered mental status, unspecified (2) UTI (urinary tract infection): Urinary tract infection type: acute cystitis Hematuria presence: without hematuria Qualified Codes: N30.00 - Acute cystitis without hematuria (3) Congestive heart failure: Congestive heart failure type: systolic GENNA PRESTON MD Jul 29, 2017 13:14
[2017-07-29 16:52] VITALS: BP 96/72
[2017-07-29 19:20] VITALS: BP 119/87
[2017-07-29] MEDS: MELATONIN 3 MG TAB PO SCH (20:47)
[2017-07-30 05:13] VITALS: BP 109/67
[2017-07-30 06:01] LABS: PLATELET COUNT, AUTOMATED 124 K/uL (150-450)
[2017-07-30] MEDS: LEVOTHYROXINE SOD 0.025 MG TAB PO SCH (06:15)
[2017-07-30 06:16] LABS: INR 3.07
[2017-07-30 07:22] VITALS: BP 94/67
[2017-07-30] MEDS: METOPROLOL SUCC XL 50 MG TABCR 50 MG TAB.ER.24H PO SCH (08:34)
[2017-07-30] MEDS: POTASSIUM CHL 20 MEQ TABCR PO SCH (08:34)
[2017-07-30] MEDS: CEFUROXIME AXETIL 250 MG TAB PO SCH (08:34)
[2017-07-30] MEDS: OSELTAMIVIR PHOS 30 MG CAP PO SCH (08:35)
[2017-07-30] MEDS: LOSARTAN POTASSIUM 50 MG TAB PO SCH (08:36)
[2017-07-30] MEDS: FUROSEMIDE 20 MG TAB PO SCH (08:36)
[2017-07-30 10:06] VITALS: Ht 162.6 cm; Wt 67.4 kg
--- NOTE | 2017-07-30 10:10 | Hospitalist Depart ---
Discharge Summary Reason for Hosp/Final Diag: (1) Altered mental status Status: Acute Hospital Course & Plan: She presented with confusion and somnolence. A CT scan of the head was negative. Her mentation has been improving. (2) Influenza A Status: Acute Hospital Course & Plan: She did test positive for influenza. She is on treatment with Tamiflu. (3) UTI (urinary tract infection) Status: Acute Hospital Course & Plan: She did have pyuria on a contaminated sample from admission, but a better sample from 07/20 did grow Klebsiella. She was initially placed on treatment with ceftriaxone, but has now converted to oral cefuroxime. Her culture from this admission is growing a gram negative mikey. (4) Atrial fibrillation Status: Chronic Hospital Course & Plan: She was in sinus rhythm on EKG at time of admit. She was on chronic treatment with diltiazem, metoprolol, and warfarin. Her diltiazem has been discontinued. Her INR has been elevated, and we have been adjusting her warfarin dose. (5) CAD (coronary artery disease) Status: Chronic Hospital Course & Plan: She is on chronic treatment with aspirin, which is currently on hold due to elevated INR. (6) Congestive heart failure Status: Chronic Hospital Course & Plan: She does have a documented ejection fraction of 23% from October 2016. She is on chronic treatment with Lasix and losartan. Daily weights are stable. (7) Hypothyroidism Status: Chronic Hospital Course & Plan: She is on chronic treatment with Synthroid. (8) Diabetes mellitus, type 2 Status: Chronic Hospital Course & Plan: She had been on chronic treatment with metformin, but this was stopped secondary to her chronic heart failure. She is currently on sliding scale level #2. We will monitor her requirements and add treatment as indicated. Departure Latest Vital Signs Vital Signs 07/30/17 07:22 Temp 97.4 Pulse 91 Resp 20 B/P (MAP) 94/67 (76) Pulse Ox 95 O2 Delivery Nasal Cannula O2 Flow Rate 2.0 Weight (Pounds): 147 Weight (Ounces): 6.0 Result Diagram: 07/30/1751907/30/17519 Condition: Improved Discharge: [facility] PT/OT Follow Up For: PT Evaluation and Treat, OT Evaluation and Treat Discharge Instructions Home Meds Active Scripts Warfarin Sodium (WARFARIN SODIUM) 5 Mg Tablet, 1 TAB PO QDAY, #30 TAB Prov:GUALBERTO DANIELLE MD 05/28/17 Furosemide (FUROSEMIDE) 20 Mg Tablet, 20 MG PO QDAY, #30 TAB 3 Refills Prov:GUALBERTO DANIELLE MD 05/09/17 Potassium Chloride (POTASSIUM CHLORIDE) 20 Meq Tab.er.prt, 20 MEQ PO QODAY, #15 TAB 3 Refills Prov:GUALBERTO DANIELLE MD 03/29/17 Levothyroxine Sodium (LEVOTHYROXINE SODIUM) 25 Mcg Tablet, 1 TAB PO QDAY, #90 TAB 2 Refills Prov:GUALBERTO DANIELLE MD 02/22/17 Losartan Potassium (LOSARTAN POTASSIUM) 25 Mg Tablet, 25 MG PO QDAY, #90 TAB 4 Refills Prov:GUALBERTO DANIELLE MD 02/21/17 Aspirin (ASPIR 81) 81 Mg Tablet.dr, 81 MG PO QDAY, #90 TAB 3 Refills Prov:GUALBERTO DANIELLE MD 02/19/17 Metformin Hcl (METFORMIN HCL ER) 500 Mg Tab.er.24, 2 TAB PO QDAY, #60 TAB 4 Refills Prov:GUALBERTO DANIELLE MD 01/31/17 Blood Sugar Diagnostic (ONE TOUCH ULTRA TEST STRIPS) 1 Each Strip, 1 EACH MC QDAY, #100 STRIP 3 Refills Use once a day to test blood sugar Prov:GUALBERTO DANIELLE MD 11/03/16 Lancets (ONE TOUCH LANCETS) 1 Each Each, 1 EACH MC QDAY, #100 3 Refills Use once a day to test blood sugar Prov:GUALBERTO DANIELLE MD 11/03/16 Blood-Glucose Meter (ONE TOUCH ULTRA 2) 1 Each Kit, 1 EACH MC QDAY, #1 Use once a day to test blood sugar Prov:GUALBERTO DANIELLE MD 11/03/16 Reported Medications Metoprolol Tartrate (METOPROLOL TARTRATE) 25 Mg Tablet, 1 TAB PO BID, TAB 07/21/17 Diltiazem Hcl (CARDIZEM CD) 180 Mg Cap.er.24h, 180 MG PO DAILY 07/21/17 Diet: Diabetic Activity: As Tolerated, With Walker Special Instructions: Copies to: GUALBERTO DANIELLE MD Venous Thromboembolism Antithrombotics Is Pt On Any Antithrombotics?: Yes Heart Failure Ejection Fraction %: 23 NYHA Class: III Is Patient on BRET Inhibitor?: Yes Is Patient on Beta Viktor?: Yes Admission Weight: 80 Problem Qualifiers (1) Altered mental status: Altered mental status type: unspecified Qualified Codes: R41.82 - Altered mental status, unspecified (2) UTI (urinary tract infection): Urinary tract infection type: acute cystitis Hematuria presence: without hematuria Qualified Codes: N30.00 - Acute cystitis without hematuria (3) Congestive heart failure: Congestive heart failure type: systolic ANTHONY MENA DO Jul 30, 2017 10:10
[2017-07-30] MEDS ORDERED: WARFARIN SOD 1 MG TAB PO SCH (13:00)
== END 2017-07-30 10:15 | DRG 690 ==
LOC: ER 16:42 → MED 20:00
PROVIDERS: ADMIT Internal Medicine; ATTEND Internal Medicine
DX: N30.00 Acute cystitis without hematuria (principal); I50.22 Chronic systolic (congestive) heart failure; J10.1 Influenza due to other identified influenza virus with other respiratory manifestations; I11.0 Hypertensive heart disease with heart failure; I48.2 Chronic atrial fibrillation; I25.10 Atherosclerotic heart disease of native coronary artery without angina pectoris; B96.1 Klebsiella pneumoniae [K. pneumoniae] as the cause of diseases classified elsewhere; E03.9 Hypothyroidism, unspecified; E11.9 Type 2 diabetes mellitus without complications; Z79.01 Long term (current) use of anticoagulants; Z79.82 Long term (current) use of aspirin; Z79.4 Long term (current) use of insulin; Z88.2 Allergy status to sulfonamides; Z88.0 Allergy status to penicillin; Z88.8 Allergy status to other drugs, medicaments and biological substances; Z86.711 Personal history of pulmonary embolism; Z95.1 Presence of aortocoronary bypass graft; Z90.710 Acquired absence of both cervix and uterus; Z90.49 Acquired absence of other specified parts of digestive tract; Z87.891 Personal history of nicotine dependence
CPT/HCPCS: 36415; 36416; 70450; 71045; 80305; 80320; 81001; 82040; 82140; 82247; 82310; 82374; 82435; 82565; 82803; 82947; 82948; 83880; 84075; 84132; 84155; 84295; 84450; 84460; 84484; 84520; 85025; 85610; 87040; 87077; 87088; 87186; 87502; 93005; 97161; 97166; 99285; A4353; J0696

== ENCOUNTER 2017-07-30 10:15 | Inpatient (IN) | payer MEDICARE, BC ==
[~2017-07-30] VITALS: Ht 162.6 cm; Wt 68.0 kg
[2017-07-30 10:06] VITALS: Ht 162.6 cm; Wt 68.0 kg
[2017-07-30 10:30] VITALS: BP 93/55
[2017-07-30] MEDS ORDERED: INFLUENZA VIRUS VAC 0.5 ML SYR IM ONLY ONE (10:35)
[2017-07-30] MEDS ORDERED: PNEUMOCOC VAC POLY 25MCG/0.5ML IM ONLY ONE (10:35)
--- NOTE | 2017-07-30 11:36 | Consultant Pharmacy Review ---
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 Do All Mecications have a Diag: No (Melatonin) Beers Criteria Medication 2015 Sliding Scale Insulin: Slidin Scale Insulin Other General Cautions Lexicomp Interaction Analysis A = No known interaction C = Monitor therapy X = Avoid combination B = No action needed D = Consider therapy modification Drugs in this analysis: Ceftin; Coumadin; Cozaar; HumaLOG; Lasix; Levothyroxine ; Melatonin; Potassium Chloride; Tamiflu; Toprol XL * Drug-Drug Interactions C Ceftin (Cephalosporins) Coumadin (Vitamin K Antagonists) C Coumadin (CYP2C9 Substrates (High risk with Inhibitors)) Cozaar (CYP2C9 Inhibitors (Moderate)) C Coumadin (Vitamin K Antagonists) Levothyroxine (Thyroid Products) C Cozaar (Angiotensin II Receptor Blockers) Potassium Chloride (Potassium Salts) C HumaLOG (Antidiabetic Agents) Lasix (Hyperglycemia-Associated Agents) C HumaLOG (Insulins) Toprol XL (Beta-Blockers) B Coumadin (Warfarin) Tamiflu (Oseltamivir) B Lasix (Furosemide) Levothyroxine (Thyroid Products) Depends on Dose Pneumococcal Vaccine HX Pneumo Vac ([id number]): Yes HX Pneumo Vac (Pneumovax): Yes Comments Regarding the Review Patient is up to date on immunizations. Please give indication for melatonin and monitor use to reduce fall risk. The patient's tamiflu should be discontinued after 07/31/17 am dose if treatment is for 5 days. ROWAN PARISI Jul 30, 2017 11:36
[2017-07-30] MEDS: WARFARIN SOD 1 MG TAB PO SCH (12:23)
[2017-07-30] MEDS: INSULIN HUM LISPRO 100 UN/ML 3 ML VIAL SUBQ PRN ×2 (12:24→17:21)
--- NOTE | 2017-07-30 14:40 | OT ECF NOTE ---
Type of Note: Initial Note Primary Medical Diagnosis: Generalized weakness s/p UTI, AMS, and Influenza A Occupational Therapy Evaluation Date: 07/30/17 SUBJECTIVE: Prior Hospitalization: H 07/26/17 thru 07/30/17 Prior Level of Function: Pt reports being (I) with ADLs and IADLs. This OT will attempt to gather more insight regarding pt's PLOF as pt demonstrates moderate confusion. Prior Living Status: Multilevel house, Spouse Community Services: No known needs Home Accessibility: Elevator All needs on one level Walk-in shower Equipment Owned: Front wheeled walker Toilet riser Extended tub bench Wheelchair Medical Complications/Past Medical History: Chronic n. damage, migraines, murmur, AFib, HTN, hx of PE, hx of L arm fx. Psychosocial Support: Supportive spouse and daughter that resides in [place] Pain Scale (0-10): no pain reported at time of initial evaluation OBJECTIVE: Strength: MMT: Right Left Shoulder Flexion WFL N/T due to limited ROM from previous fx Elbow Flexion WFL WFL Wrist Extension WFL WFL Clinic Coordinator WFL WFL (5= normal, 4= good, 3= fair, 2= poor, 1= trace) ROM: Left, Minimally limited Sensation: Intact, no concerns Functional Transfer: Assistive Device: Front wheeled walker, Gait belt Transfer Ability: CGA ADL: Upper body dressing: Assistive device: Upper body dressing ability: Minimum assistance Lower body dressing: Assistive device: Lower body dressing ability: Minimum assistance Toileting: Assistive device: Raised toilet seat Toileting ability: Minimum assistance Grooming/hygiene: Assistive device: Grooming ability: N/T Bathing: Assistive device: Bathing ability: N/T Standardized Assessment: Lori Index of Activities of Daily Livin/20 at initial evaluation (07/30). ASSESSMENT: Argenis presents to [facility] with generalized weakness s/p hospital stay for UTI, AMS, and Influenza A. She requires assist for ADLs and functional mobility. She will benefit from skilled OT services to increase activity tolerance and optimize (I) for ADLs prior to discharge home. Problem List/Current Limitations: Decreased activity tolerance Generalized weakness Poor safety awareness Memory deficits Confusion Short Term Goals: 1) Pt will be SBA grooming/hygiene. 2) Pt will be SBA toileting. 3) Pt will be SBA UB/LB dressing. 4) Pt will be Min A shower task. 5) Pt Lori Index of ADLs score will increase by 2 points. Custodial Goals: Return home with increased home services Patient Goals: Return home with spouse Rehabilitation Prognosis: Good Barriers to Discharge: Cognition, Advanced age PLAN: The patient will benefit from skilled occupational therapy services 5 times per week for 2 weeks including: Ther ex ADL training Ther act IADL training Transfer training Adaptive equip training Bed mobility Energy conservation Thank you for this referral. If you have any questions, concerns, or comments about this report or plan, please contact me at . Tita Kelsey MS, OTR/L Occupational Therapist CHANDANA
[2017-07-30] MEDS: OSELTAMIVIR PHOS 30 MG CAP PO SCH (21:06)
[2017-07-30] MEDS: MELATONIN 3 MG TAB PO SCH (21:06)
[2017-07-30] MEDS: CEFUROXIME AXETIL 250 MG TAB PO SCH (21:06)
[2017-07-31] MEDS: LEVOTHYROXINE SOD 0.025 MG TAB PO SCH (06:47)
[2017-07-31 07:41] LABS: INR 2.63
[2017-07-31 08:30] VITALS: BP 113/68
[2017-07-31] MEDS: OSELTAMIVIR PHOS 30 MG CAP PO SCH ×2 (09:00→20:51)
[2017-07-31] MEDS: POTASSIUM CHL 20 MEQ TABCR PO SCH (09:00)
[2017-07-31] MEDS: METOPROLOL SUCC XL 50 MG TABCR 50 MG TAB.ER.24H PO SCH (09:00)
[2017-07-31] MEDS: LOSARTAN POTASSIUM 50 MG TAB PO SCH (09:00)
[2017-07-31] MEDS: FUROSEMIDE 20 MG TAB PO SCH (09:00)
[2017-07-31] MEDS: CEFUROXIME AXETIL 250 MG TAB PO SCH ×2 (09:00→20:51)
--- NOTE | 2017-07-31 09:16 | PT ECF NOTE ---
Type of Note: Initial Note Primary Medical Diagnosis: Influenza, UTI Physical Therapy Evaluation Date: 07/30/17 SUBJECTIVE: Prior Hospitalization: [facility] 07/26/17-07/30/17 Prior Level of Function: Pt is as poor historian, but reports being Kelly - Independent at [facility] with no AD Prior Living Status: Bi-level house, Spouse Community Services: Unknown Home Accessibility: Elevator Equipment Owned: Front wheeled walker, Toilet riser, Extended tub bench, Wheelchair Medical Complications/Past Medical History: See EMR for details Psychosocial Support: Supportive and daughter Pain Scale (0-10): pt reports, "I am sick all over" OBJECTIVE: Strength: Right Lower Extremity: DF: 4/5 Knee flexion: 4/5 Knee extension: 4/5 Hip flexion: 3/5 Left Lower Extremity: DF: 4/5 Knee flexion: 4/5 Knee extension: 4/5 Hip flexion: 3/5 ROM: WFL Sensation: WNL Other Neuro findings: N/A Bed Mobility: Duyen with HOB raised and use of bed rail Transfers: CGA with RW Gait: CGA x100' with RW Stairs: NT Gait Speed (0.6m/second cannot function independently): .28 m/sec ASSESSMENT: Pt is quite confused, but agreeable to therapy session. Pt requires Duyen for bed mobility, CGA for transfers and ambulation x100' with RW. Pt ambulates with slowed gait speed (0.28 m/sec) indicating an increased risk of falls and increased need of assistance from others. Argenis will benefit from skilled PT intervention to improve safety with functional mobility and decreased risk of falls. Pt will likely require increased care upon d/c home d/ t cognitive status. Problem List/Current Limitations: Decreased activity zane Decreased strength Decreased balance Generalized weakness Poor safety awareness Memory deficits Decreased problem solving Confusion Short Term Goals: 1: Pt to complete bed mobility with SBA and HOB flat 2: Pt to complete transfers from a variety of surfaces with SBA and least restrictive AD 3: Pt to ambulate 250' with SBA and least restrictive AD 4: Pt to asc/desc platform stair with SBA to simulate community mobility. 5: Pt to demonstrate an improvement in gait speed by at least 0.05 m/sec to indicate a small meaningful change. Ceramic Tiler Goals: Pt to discharge home with adequate support in place Patient Goals: Pt did not verbalize goals Rehabilitation Prognosis: Fair Barriers for Discharge: Confusion, decreased safety awareness PLAN: The patient will benefit from skilled physical therapy services 5 times per week for 2 weeks including: Therapeutic Exercise Therapeutic Activities Transfer Training Gait Training Stair Training Safety Training Neuromuscular Re-educ. Pt/Caregiver Training Bed Mobility Thank you for this referral. If you have any questions, concerns, or comments about this report or plan, please contact me at . Lauren Kaplan, PT, DPT [facility]
[2017-07-31] MEDS: WARFARIN SOD 1 MG TAB PO SCH (13:17)
[2017-07-31 16:50] VITALS: BP 108/76
[2017-07-31] MEDS: INSULIN HUM LISPRO 100 UN/ML 3 ML VIAL SUBQ PRN (17:36)
[2017-07-31] MEDS: MELATONIN 3 MG TAB PO SCH (20:51)
[2017-08-01] MEDS: LEVOTHYROXINE SOD 0.025 MG TAB PO SCH (05:47)
[2017-08-01 07:25] LABS: INR 2.61
[2017-08-01] MEDS: OSELTAMIVIR PHOS 30 MG CAP PO SCH ×2 (08:51→21:12)
[2017-08-01] MEDS: POTASSIUM CHL 20 MEQ TABCR PO SCH (08:51)
[2017-08-01] MEDS: LOSARTAN POTASSIUM 50 MG TAB PO SCH (08:51)
[2017-08-01] MEDS: FUROSEMIDE 20 MG TAB PO SCH (08:51)
[2017-08-01] MEDS: METOPROLOL SUCC XL 50 MG TABCR 50 MG TAB.ER.24H PO SCH (08:51)
[2017-08-01] MEDS: CEFUROXIME AXETIL 250 MG TAB PO SCH ×2 (08:51→21:13)
[2017-08-01 09:32] VITALS: BP 114/76
--- NOTE | 2017-08-01 10:05 | Medical Nutrition Therapy ---
Nutrition Anthropometrics Height (Inches): 64.00 Weight (Pounds): 150 Weight (Calculated Kilograms): 68.039 BMI Calculated: 25.40 Bob Nutrition Score: Adequate Bob Nutrition Risk Score: 17 Dietary Referral Nutrition Risk Factors: Nutrition Risk Comment: Physical Findings Physical Appearance: Overweight BMI 25-29 (25.7) Skin Appearance Skin Appearance: Edema Edema Location Modifier: Both Edema Location: Ankle/Feet Type of Edema: Degree of Edema: 1+ Gastrointestinal Symptoms GI Symtoms: Tube Present: Bowel Sounds: Recent Bowel Pattern: Stool Characteristics: Nutritional Diagnosis Nutritional Risk Acuity 2: CHF w/Complication Nutritional Risk Acuity 3: GERD Nutritional Risk Acuity 4: Age Related Past Medical History: a-fib, CAD, PE, ascending aortic aneurysm, hypothyroidism, type 2 DM, CHF, GERD Nutritional Acuity: 3-Mild Nutrition Diagnosis: Decreased Nutrient Needs Nutrition Etiology: Physiological Causes Nutrition Problem/Etiology/Sym: Decreased Na/fluid needs r/t CHF AEB lower extremity edema Energy Requirement: 1440 ([place] St Jeor) Protein Requirement: 68 (1 g/kg) Fluid Requirement: 2040 (30 ml/kg) Diet Type: CHF Diet, Fluid Restricted Drug: Diuretics, Warfarin Drug/Nutrition Recommendations: Patient Taking K+, Check Serum K+ Do Not Serve Any of the Follow: Broccoli, Brussel Sprouts, Spinach, [place] Lettuce, Cranberry Juice Diet Comment To RSA: PLEASE OFFER MAGIC CUP MAY HAVE NUTR SUPPLEMENT WITHIN FLUID RESTRICTION Nutrition Monitoring & Eval Nutrition Goals: Fluid Restrictions RD Patient Assessment Time: [address] Assessment Type: RD Assessment Patient Nutrition Acuity: 2-Moderate Follow Up Date: Aug 07, 2017 Nutritional Comment: 07/31 Pt orginally admitted to med/surg for AMS, UTI, and influenza A. Transferred to ECF for further care. Pt on CHF diet/fluid restriction averaging 60% intakes. Daily weights have been stable. No labs available. Pt taking K+ depleting diuretic and KCl. Will continue to monitor intakes, labs, etc. GEOFFREY NIEVES Jul 31, 2017 11:08
[2017-08-01 11:21] VITALS: BP 110/68
[2017-08-01] MEDS: WARFARIN SOD 1 MG TAB PO SCH (13:08)
--- NOTE | 2017-08-01 16:22 | Antimicrobial Stewardship ---
Antimicrobial Stewardship MD Service: Hospitalist Indications: UTI, Other (Influenza A) Antimicrobial Allergies PCN and Sulfonamides Antimicrobial Used Cefuroxime and Oseltamivir antiviral. Start Date: Jul 26, 2017 (Oseltamivir upon Medical Admission) Weight (Calculated Kilograms): 68.039 Patient Improving Clinically: Yes Tolerating Oral Fluids: Yes Able to Absorb PO Meds: Yes Taking Other Meds PO: Yes Comments Patient taking PO antibiotic and antiviral upon ECF admission. JOSSELYN MORAN Aug 01, 2017 16:22
[2017-08-01] MEDS: INSULIN HUM LISPRO 100 UN/ML 3 ML VIAL SUBQ PRN ×2 (16:36→21:28)
[2017-08-01 16:48] VITALS: BP 119/72
[2017-08-01] MEDS: MELATONIN 3 MG TAB PO SCH (21:12)
[2017-08-02] MEDS: LEVOTHYROXINE SOD 0.025 MG TAB PO SCH (05:53)
[2017-08-02 07:54] LABS: INR 3.06
[2017-08-02 08:00] VITALS: BP 108/70
[2017-08-02] MEDS: METOPROLOL SUCC XL 50 MG TABCR 50 MG TAB.ER.24H PO SCH (08:36)
[2017-08-02] MEDS: POTASSIUM CHL 20 MEQ TABCR PO SCH (08:36)
[2017-08-02] MEDS: CEFUROXIME AXETIL 250 MG TAB PO SCH ×2 (08:36→21:01)
[2017-08-02] MEDS: FUROSEMIDE 20 MG TAB PO SCH (08:36)
[2017-08-02] MEDS: OSELTAMIVIR PHOS 30 MG CAP PO SCH ×2 (08:37→21:00)
[2017-08-02] MEDS: LOSARTAN POTASSIUM 50 MG TAB PO SCH (08:37)
[2017-08-02] MEDS: INSULIN HUM LISPRO 100 UN/ML 3 ML VIAL SUBQ PRN ×3 (13:30→21:01)
[2017-08-02 16:30] VITALS: BP 122/78
[2017-08-02] MEDS: MELATONIN 3 MG TAB PO SCH (21:01)
[2017-08-03] MEDS: LEVOTHYROXINE SOD 0.025 MG TAB PO SCH (06:05)
[2017-08-03 07:17] LABS: INR 3.07
[2017-08-03 08:05] VITALS: BP 110/70
[2017-08-03] MEDS: INSULIN HUM LISPRO 100 UN/ML 3 ML VIAL SUBQ PRN ×2 (08:33→20:34)
[2017-08-03] MEDS: METOPROLOL SUCC XL 50 MG TABCR 50 MG TAB.ER.24H PO SCH (08:39)
[2017-08-03 08:40] VITALS: BP 114/56
[2017-08-03] MEDS: LOSARTAN POTASSIUM 50 MG TAB PO SCH (08:40)
[2017-08-03] MEDS: FUROSEMIDE 20 MG TAB PO SCH (08:40)
[2017-08-03] MEDS: POTASSIUM CHL 20 MEQ TABCR PO SCH (08:40)
[2017-08-03] MEDS: CEFUROXIME AXETIL 250 MG TAB PO SCH ×2 (08:40→20:34)
[2017-08-03] MEDS: OSELTAMIVIR PHOS 30 MG CAP PO SCH ×2 (08:40→20:33)
--- NOTE | 2017-08-03 11:04 | HISTORY AND PHYSICAL ---
DATE OF ADMISSION: July 30, 2017 Reason for Hosp/Final Diag: (1) Altered mental status Status: Acute Hospital Course & Plan: She presented with confusion and somnolence. A CT scan of the head was negative. Her mentation has been improving. (2) Influenza A Status: Acute Hospital Course & Plan: She did test positive for influenza. She is on treatment with Tamiflu. (3) UTI (urinary tract infection) Status: Acute Hospital Course & Plan: She did have pyuria on a contaminated sample from admission, but a better sample from 07/20 did grow Klebsiella. She was initially placed on treatment with ceftriaxone, but has now converted to oral cefuroxime. Her culture from this admission is growing a gram negative mikey. (4) Atrial fibrillation Status: Chronic Hospital Course & Plan: She was in sinus rhythm on EKG at time of admit. She was on chronic treatment with diltiazem, metoprolol, and warfarin. Her diltiazem has been discontinued. Her INR has been elevated, and we have been adjusting her warfarin dose. (5) CAD (coronary artery disease) Status: Chronic Hospital Course & Plan: She is on chronic treatment with aspirin, which is currently on hold due to elevated INR. (6) Congestive heart failure Status: Chronic Hospital Course & Plan: She does have a documented ejection fraction of 23% from October 2016. She is on chronic treatment with Lasix and losartan. Daily weights are stable. (7) Hypothyroidism Status: Chronic Hospital Course & Plan: She is on chronic treatment with Synthroid. (8) Diabetes mellitus, type 2 Status: Chronic Hospital Course & Plan: She had been on chronic treatment with metformin, but this was stopped secondary to her chronic heart failure. She is currently on sliding scale level #2. We will monitor her requirements and add treatment as indicated. Departure Latest Vital Signs Vital Signs 07/30/17 07:22 Temp 97.4 Pulse 91 Resp 20 B/P (MAP) 94/67 (76) Pulse Ox 95 O2 Delivery Nasal Cannula O2 Flow Rate 2.0 Weight (Pounds): 147 Weight (Ounces): 6.0 Result Diagram: 07/30/1751907/30/17519 Condition: Improved Discharge: [facility] PT/OT Follow Up For: PT Evaluation and Treat, OT Evaluation and Treat Discharge Instructions Home Meds Active Scripts Warfarin Sodium (WARFARIN SODIUM) 5 Mg Tablet, 1 TAB PO QDAY, #30 TAB Prov:GUALBERTO DANIELLE MD 05/28/17 Furosemide (FUROSEMIDE) 20 Mg Tablet, 20 MG PO QDAY, #30 TAB 3 Refills Prov:GUALBERTO DANIELLE MD 05/09/17 Potassium Chloride (POTASSIUM CHLORIDE) 20 Meq Tab.er.prt, 20 MEQ PO QODAY, #15 TAB 3 Refills Prov:GUALBERTO DANIELLE MD 03/29/17 Levothyroxine Sodium (LEVOTHYROXINE SODIUM) 25 Mcg Tablet, 1 TAB PO QDAY, #90 TAB 2 Refills Prov:GUALBERTO DANIELLE MD 02/22/17 Losartan Potassium (LOSARTAN POTASSIUM) 25 Mg Tablet, 25 MG PO QDAY, #90 TAB 4 Refills Prov:GUALBERTO DANIELLE MD 02/21/17 Aspirin (ASPIR 81) 81 Mg Tablet.dr, 81 MG PO QDAY, #90 TAB 3 Refills Prov:GUALBERTO DANIELLE MD 02/19/17 Metformin Hcl (METFORMIN HCL ER) 500 Mg Tab.er.24, 2 TAB PO QDAY, #60 TAB 4 Refills Prov:GUALBERTO DANIELLE MD 01/31/17 Blood Sugar Diagnostic (ONE TOUCH ULTRA TEST STRIPS) 1 Each Strip, 1 EACH MC QDAY, #100 STRIP 3 Refills Use once a day to test blood sugar Prov:GUALBERTO DANIELLE MD 11/03/16 Lancets (ONE TOUCH LANCETS) 1 Each Each, 1 EACH MC QDAY, #100 3 Refills Use once a day to test blood sugar Prov:GUALBERTO DANIELLE MD 11/03/16 Blood-Glucose Meter (ONE TOUCH ULTRA 2) 1 Each Kit, 1 EACH MC QDAY, #1 Use once a day to test blood sugar Prov:GUALBERTO DANIELLE MD 11/03/16 Reported Medications Metoprolol Tartrate (METOPROLOL TARTRATE) 25 Mg Tablet, 1 TAB PO BID, TAB 07/21/17 Diltiazem Hcl (CARDIZEM CD) 180 Mg Cap.er.24h, 180 MG PO DAILY 07/21/17 Diet: Diabetic Activity: As Tolerated, With Walker Special Instructions: Copies to: GUALBERTO DANIELLE MD Venous Thromboembolism Antithrombotics Is Pt On Any Antithrombotics?: Yes Heart Failure Ejection Fraction %: 23 NYHA Class: III Is Patient on BRET Inhibitor?: Yes Is Patient on Beta Viktor?: Yes Admission Weight: 80 Problem Qualifiers (1) Altered mental status: Altered mental status type: unspecified Qualified Codes: R41.82 - Altered mental status, unspecified (2) UTI (urinary tract infection): Urinary tract infection type: acute cystitis Hematuria presence: without hematuria Qualified Codes: N30.00 - Acute cystitis without hematuria (3) Congestive heart failure: Congestive heart failure type: systolic ANTHONY MENA DO Jul 30, 2017 10:10 <Electronically signed by ANTHONY MENA DO> D/ 1010 [id number] 1010 HUMAIRA/EUN H&P ADDENDUM The above issues are resolving. Patient requires [facility] care and/or skilled rehabilitation. Patient is ready for transfer to Extended Care. Any change in condition is described below. CHANDANA
[2017-08-03] MEDS: WARFARIN SOD 1 MG TAB PO SCH (12:48)
[2017-08-03] MEDS ORDERED: WARFARIN SOD 1 MG TAB PO SCH (13:00)
[2017-08-03 16:43] VITALS: BP 120/65
[2017-08-03] MEDS: MELATONIN 3 MG TAB PO SCH (20:34)
[2017-08-04] MEDS: LEVOTHYROXINE SOD 0.025 MG TAB PO SCH (05:57)
[2017-08-04 06:52] LABS: INR 2.59
[2017-08-04 07:43] VITALS: BP 98/62
[2017-08-04] MEDS: FUROSEMIDE 20 MG TAB PO SCH (08:52)
[2017-08-04] MEDS: CEFUROXIME AXETIL 250 MG TAB PO SCH ×2 (08:52→21:51)
[2017-08-04] MEDS: OSELTAMIVIR PHOS 30 MG CAP PO SCH ×2 (08:52→21:51)
[2017-08-04] MEDS: METOPROLOL SUCC XL 50 MG TABCR 50 MG TAB.ER.24H PO SCH (08:52)
[2017-08-04] MEDS: LOSARTAN POTASSIUM 50 MG TAB PO SCH (08:53)
[2017-08-04] MEDS: POTASSIUM CHL 20 MEQ TABCR PO SCH (08:53)
[2017-08-04] MEDS: INSULIN HUM LISPRO 100 UN/ML 3 ML VIAL SUBQ PRN ×2 (08:54→12:25)
[2017-08-04] MEDS: WARFARIN SOD 1 MG TAB PO SCH (13:41)
[2017-08-04 16:20] VITALS: BP 100/63
[2017-08-04] MEDS: MELATONIN 3 MG TAB PO SCH (21:51)
[2017-08-05] MEDS: LEVOTHYROXINE SOD 0.025 MG TAB PO SCH (07:04)
[2017-08-05 07:38] VITALS: BP 93/59
[2017-08-05 07:43] LABS: INR 2.1
[2017-08-05] MEDS: FUROSEMIDE 20 MG TAB PO SCH (09:29)
[2017-08-05] MEDS: OSELTAMIVIR PHOS 30 MG CAP PO SCH ×2 (09:29→20:55)
[2017-08-05] MEDS: CEFUROXIME AXETIL 250 MG TAB PO SCH ×2 (09:29→20:55)
[2017-08-05] MEDS: POTASSIUM CHL 20 MEQ TABCR PO SCH (09:29)
[2017-08-05] MEDS: METOPROLOL SUCC XL 50 MG TABCR 50 MG TAB.ER.24H PO SCH (09:29)
[2017-08-05] MEDS: LOSARTAN POTASSIUM 50 MG TAB PO SCH (09:29)
[2017-08-05] MEDS: INSULIN HUM LISPRO 100 UN/ML 3 ML VIAL SUBQ PRN ×2 (09:30→17:04)
[2017-08-05] MEDS: WARFARIN SOD 1 MG TAB PO SCH (13:17)
[2017-08-05 16:05] VITALS: BP 93/64
[2017-08-05] MEDS: MELATONIN 3 MG TAB PO SCH (20:55)
[2017-08-06] MEDS: LEVOTHYROXINE SOD 0.025 MG TAB PO SCH (06:49)
[2017-08-06 07:02] LABS: INR 1.83
[2017-08-06 07:50] VITALS: BP 114/64
[2017-08-06] MEDS: METOPROLOL SUCC XL 50 MG TABCR 50 MG TAB.ER.24H PO SCH (08:45)
[2017-08-06] MEDS: LOSARTAN POTASSIUM 50 MG TAB PO SCH (08:45)
[2017-08-06] MEDS: POTASSIUM CHL 20 MEQ TABCR PO SCH (08:46)
[2017-08-06] MEDS: FUROSEMIDE 20 MG TAB PO SCH (08:46)
[2017-08-06] MEDS: OSELTAMIVIR PHOS 30 MG CAP PO SCH ×2 (08:46→20:52)
[2017-08-06] MEDS: CEFUROXIME AXETIL 250 MG TAB PO SCH ×2 (08:46→20:52)
[2017-08-06] MEDS: INSULIN HUM LISPRO 100 UN/ML 3 ML VIAL SUBQ PRN ×3 (08:52→20:52)
[2017-08-06] MEDS: WARFARIN SOD 1 MG TAB PO SCH (12:19)
[2017-08-06 15:09] VITALS: BP 103/70
[2017-08-06] MEDS: MELATONIN 3 MG TAB PO SCH (20:51)
[2017-08-07] MEDS: LEVOTHYROXINE SOD 0.025 MG TAB PO SCH (05:45)
[2017-08-07 06:56] LABS: INR 1.61
[2017-08-07 07:30] VITALS: BP 110/69
[2017-08-07] MEDS: OSELTAMIVIR PHOS 30 MG CAP PO SCH ×2 (09:04→20:57)
[2017-08-07] MEDS: CEFUROXIME AXETIL 250 MG TAB PO SCH ×2 (09:04→20:58)
[2017-08-07] MEDS: FUROSEMIDE 20 MG TAB PO SCH (09:04)
[2017-08-07] MEDS: POTASSIUM CHL 20 MEQ TABCR PO SCH (09:04)
[2017-08-07] MEDS: LOSARTAN POTASSIUM 50 MG TAB PO SCH (09:04)
[2017-08-07] MEDS: METOPROLOL SUCC XL 50 MG TABCR 50 MG TAB.ER.24H PO SCH (09:04)
[2017-08-07] MEDS: INSULIN HUM LISPRO 100 UN/ML 3 ML VIAL SUBQ PRN ×3 (09:05→21:00)
--- NOTE | 2017-08-07 09:20 | Medical Nutrition Therapy ---
Nutrition Anthropometrics Height (Inches): 64.00 Weight (Pounds): 150 Weight (Calculated Kilograms): 68.039 BMI Calculated: 25.40 Bob Nutrition Score: Adequate Bob Nutrition Risk Score: 17 Dietary Referral Nutrition Risk Factors: Nutrition Risk Comment: Physical Findings Physical Appearance: Overweight BMI 25-29 (25.7) Skin Appearance Skin Appearance: Edema Edema Location Modifier: Both Edema Location: Ankle/Feet Type of Edema: Degree of Edema: 1+ Gastrointestinal Symptoms GI Symtoms: Tube Present: Bowel Sounds: Recent Bowel Pattern: Stool Characteristics: Nutritional Diagnosis Nutritional Risk Acuity 2: CHF w/Complication Nutritional Risk Acuity 3: GERD Nutritional Risk Acuity 4: Age Related Past Medical History: a-fib, CAD, PE, ascending aortic aneurysm, hypothyroidism, type 2 DM, CHF, GERD Nutritional Acuity: 3-Mild Nutrition Diagnosis: Decreased Nutrient Needs Nutrition Etiology: Physiological Causes Nutrition Problem/Etiology/Sym: Decreased Na/fluid needs r/t CHF AEB lower extremity edema Energy Requirement: 1440 ([place] St Jeor) Protein Requirement: 68 (1 g/kg) Fluid Requirement: 2040 (30 ml/kg) Diet Type: CHF Diet, Fluid Restricted Drug: Diuretics, Warfarin Drug/Nutrition Recommendations: Patient Taking K+, Check Serum K+ Do Not Serve Any of the Follow: Broccoli, Brussel Sprouts, Spinach, [place] Lettuce, Cranberry Juice Diet Comment To RSA: PLEASE OFFER MAGIC CUP MAY HAVE NUTR SUPPLEMENT WITHIN FLUID RESTRICTION Nutrition Monitoring & Eval RD Patient Assessment Time: [address] Assessment Type: RD Re-Assessment Patient Nutrition Acuity: 2-Moderate Follow Up Date: Aug 14, 2017 Nutritional Comment: 07/31 Pt orginally admitted to med/surg for AMS, UTI, and influenza A. Transferred to F for further care. Pt on CHF diet/fluid restriction averaging 60% intakes. Daily weights have been stable. No labs available. Pt taking K+ depleting diuretic and KCl. Will continue to monitor intakes, labs, etc. 08/06 Pt continues on CHF diet/fluid restricion averaging 71% intakes of small to reg portions. Pt continues on K+ depleting diuretic and KCl. No K+ labs available. No new wt available. Edema resolved. Will continue to monitor labs, intakes, wt, etc. GEOFFREY NIEVES Aug 06, 2017 11:11
[2017-08-07] MEDS: WARFARIN SOD 1 MG TAB PO SCH (12:46)
[2017-08-07 15:25] VITALS: BP 92/65
[2017-08-07] MEDS: MELATONIN 3 MG TAB PO SCH (20:57)
[2017-08-08] MEDS: LEVOTHYROXINE SOD 0.025 MG TAB PO SCH (05:59)
[2017-08-08 06:12] LABS: INR 1.37
[2017-08-08 08:00] VITALS: BP 105/71
[2017-08-08] MEDS: OSELTAMIVIR PHOS 30 MG CAP PO SCH (09:00)
[2017-08-08] MEDS: POTASSIUM CHL 20 MEQ TABCR PO SCH (09:01)
[2017-08-08] MEDS: LOSARTAN POTASSIUM 50 MG TAB PO SCH (09:01)
[2017-08-08] MEDS: FUROSEMIDE 20 MG TAB PO SCH (09:01)
[2017-08-08] MEDS: METOPROLOL SUCC XL 50 MG TABCR 50 MG TAB.ER.24H PO SCH (09:01)
[2017-08-08] MEDS: CEFUROXIME AXETIL 250 MG TAB PO SCH (09:01)
[2017-08-08] MEDS: INSULIN HUM LISPRO 100 UN/ML 3 ML VIAL SUBQ PRN (09:03)
[2017-08-08] MEDS: WARFARIN SOD 1 MG TAB PO SCH (13:17)
[2017-08-08] MEDS ORDERED: WARFARIN SOD 1 MG TAB PO ONE (15:55)
--- NOTE | 2017-08-08 16:01 | Hospitalist Progress Note ---
Subjective Progress Notes Subjective The patient has no new complaints. Physical Exam Vital Signs Date Time Temp Pulse Resp B/P (MAP) Pulse Ox O2 Delivery O2 Flow Rate FiO2 08/08/17 11:30 95 Nasal Cannula 2.0 08/08/17 08:00 98.9 16 105/71 (82) 08/07/17 15:25 68 Intake and Output 08/09/17 07:00 Intake Total 600 ml Balance 600 ml Intake Oral 600 ml # Bowel Movements 1 General Appearance: Alert, Awake, Other (Confused. Short term memory is very poor.) Neuro: Other (Confused.) Eyes: PERRLA Cardiovascular: Other (Irregularly irregular.) Respiratory: Clear to Auscultation GI: Soft and Non-Tender Extremities: Warm, Perfused, Other (2+ pitting edema.) Integumentary: Skin Intact without Lesion / Mass Psych: Appropriate Mood & Affect Assessment and Plan Problems: (1) Altered mental status Status: Acute Assessment & Plan: She presented with confusion and somnolence. A CT scan of the head was negative. Her mentation has been improving but she remains confused and her short term memory is very poor. (2) Influenza A Status: Acute Assessment & Plan: She did test positive for influenza. She completed treatment with Tamiflu. (3) UTI (urinary tract infection) Status: Acute Assessment & Plan: She did have pyuria on a contaminated sample from admission , but a better sample from 07/20 as an outpatient did grow Klebsiella. She was initially placed on treatment with ceftriaxone, but has now converted to oral cefuroxime. Her culture from this admission is once again growing Klebsiella pneumonia. (4) Atrial fibrillation Status: Chronic Assessment & Plan: She was in sinus rhythm on EKG at time of admit. She was on chronic treatment with diltiazem, metoprolol, and warfarin. Her diltiazem has been discontinued. Her INR was initially and we have been adjusting her warfarin dose. (5) CAD (coronary artery disease) Status: Chronic Assessment & Plan: She is on chronic treatment with aspirin. This was held initially and has been restarted. (6) Congestive heart failure Status: Chronic Assessment & Plan: She does have a documented ejection fraction of 23% from October 2016. She is on chronic treatment with Lasix and losartan. Daily weights are stable. (7) Hypothyroidism Status: Chronic Assessment & Plan: She is on chronic treatment with Synthroid. (8) Diabetes mellitus, type 2 Status: Chronic Assessment & Plan: She had been on chronic treatment with metformin, but this was initially stopped. She was placed on sliding scale level #2. Will restart at 500mg daily. (9) Pulmonary embolism Status: Chronic Assessment & Plan: On warfarin chronically. Her INR is low today. Will increased Coumadin. Time Spent on Plan of Care: < 30 min Heart Failure Ejection Fraction %: 23 NYHA Class: III Is Patient on BRET Inhibitor?: Yes Is Patient on Beta Viktor?: Yes Admission Weight: 80 JUDY PRESTON MD Aug 08, 2017 16:01
[2017-08-08 16:45] VITALS: BP 105/71
[2017-08-08] MEDS: ENOXAPARIN 100 MG/ML SYR SC SCH (20:59)
[2017-08-08] MEDS: MELATONIN 3 MG TAB PO SCH (20:59)
[2017-08-09] MEDS: LEVOTHYROXINE SOD 0.025 MG TAB PO SCH (05:50)
[2017-08-09 06:24] LABS: INR 1.37
[2017-08-09 08:00] VITALS: BP 109/70
[2017-08-09] MEDS ORDERED: ENOX100D5 SC (08:04)
[2017-08-09] MEDS ORDERED: METO50TA19 PO (08:04)
[2017-08-09] MEDS ORDERED: INSU100V24 SUBQ (08:04)
[2017-08-09] MEDS ORDERED: METXR500 PO (08:04)
[2017-08-09] MEDS ORDERED: MELA3TAB31 PO (08:04)
--- NOTE | 2017-08-09 08:16 | Hospitalist Depart ---
Discharge Summary Reason for Hosp/Final Diag: (1) Altered mental status Status: Acute Hospital Course & Plan: She presented with confusion and somnolence. A CT scan of the head was negative. Her mentation improved but she remained confused and her short term memory was very poor. (2) Influenza A Status: Acute Hospital Course & Plan: She did test positive for influenza. She completed treatment with Tamiflu. (3) UTI (urinary tract infection) Status: Acute Hospital Course & Plan: She did have pyuria on a contaminated sample from admission, but a better sample from 07/20 as an outpatient did grow Klebsiella. She was initially placed on treatment with ceftriaxone, but was converted to oral cefuroxime. Her culture from this admission once again grew Klebsiella pneumonia. (4) Atrial fibrillation Status: Chronic Hospital Course & Plan: She was in sinus rhythm on EKG at time of admit. She was on chronic treatment with diltiazem, metoprolol, and warfarin. Her diltiazem was discontinued. Her INR was initially high and her dose of warfarin was adjusted. She was subtherapeutic at the time of discharge and will need to be on overlapping Lovenox until her INR is >1.9. (5) CAD (coronary artery disease) Status: Chronic Hospital Course & Plan: She is on chronic treatment with aspirin. This was held initially due to high INR and then restarted. (6) Congestive heart failure Status: Chronic Hospital Course & Plan: She has a documented ejection fraction of 23% from October 2016. She is on chronic treatment with Lasix and losartan. Daily weights were stable. (7) Hypothyroidism Status: Chronic Hospital Course & Plan: She was continued on chronic treatment with Synthroid. (8) Diabetes mellitus, type 2 Status: Chronic Hospital Course & Plan: She had been on chronic treatment with metformin 1000mg daily, but this was initially stopped. She was placed on sliding scale level #2. Metformin was restarted at 500mg daily. (9) Pulmonary embolism Status: Chronic Hospital Course & Plan: On warfarin chronically. Her INR was initially high and warfarin adjusted. She was subtherapeutic at the time of discharge so was placed on Lovenox to overlap with warfarin until her INR is therapeutic. Departure Weight (Pounds): 150 Weight (Ounces): 7.0 Condition: Improved Discharge: Halfway PT/OT Follow Up For: PT Evaluation and Treat, ST Evaluation and Treat, OT Evaluation and Treat Discharge Code Status: Full Code Time Spent: < 30 min Discharge Instructions Home Meds Active Scripts Warfarin Sodium (WARFARIN SODIUM) 1 Mg Tablet, 1.5 MG PO DAILY@1300, #30 TAB Prov:JUDY PRESTON MD 08/09/17 Metoprolol Succinate (METOPROLOL SUCCINATE) 50 Mg Tab.er.24h, 50 MG PO QDAY, # 30 TAB Prov:JUDY PRESTON MD 08/09/17 Metformin Hcl (METFORMIN HCL ER) 500 Mg Tabcr, 500 MG PO QDAY, #30 TAB Prov:JUDY PRESTON MD 08/09/17 Melatonin (MELATONIN) 3 Mg Tablet, 3 MG PO QHS, #30 TAB Prov:JUDY PRESTON MD 08/09/17 Insulin Lispro (HUMALOG) 100 Unit/1 Ml Vial, 2-10 UNIT SUBQ SS Y for SLIDING SCALE INSULIN, #1 VIAL Prov:JUDY PRESTON MD 08/09/17 Enoxaparin Sodium (LOVENOX) 100 Mg/1 Ml Disp.syrin, 68 MG SC Q12H, #10 UNITS Prov:JUDY PRESTON MD 08/09/17 Furosemide (FUROSEMIDE) 20 Mg Tablet, 20 MG PO QDAY, #30 TAB 3 Refills Prov:GUALBERTO DANIELLE MD 05/09/17 Potassium Chloride (POTASSIUM CHLORIDE) 20 Meq Tab.er.prt, 20 MEQ PO QODAY, #15 TAB 3 Refills Prov:GUALBERTO DANIELLE MD 03/29/17 Levothyroxine Sodium (LEVOTHYROXINE SODIUM) 25 Mcg Tablet, 1 TAB PO QDAY, #90 TAB 2 Refills Prov:GUALBERTO DANIELLE MD 02/22/17 Losartan Potassium (LOSARTAN POTASSIUM) 25 Mg Tablet, 25 MG PO QDAY, #90 TAB 4 Refills Prov:GUALBERTO DANIELLE MD 02/21/17 Aspirin (ASPIR 81) 81 Mg Tablet.dr, 81 MG PO QDAY, #90 TAB 3 Refills Prov:GUALBERTO DANIELLE MD 02/19/17 Blood Sugar Diagnostic (ONE TOUCH ULTRA TEST STRIPS) 1 Each Strip, 1 EACH MC QDAY, #100 STRIP 3 Refills Use once a day to test blood sugar Prov:GUALBERTO DANIELLE MD 11/03/16 Lancets (ONE TOUCH LANCETS) 1 Each Each, 1 EACH MC QDAY, #100 3 Refills Use once a day to test blood sugar Prov:GUALBERTO DANIELLE MD 11/03/16 Blood-Glucose Meter (ONE TOUCH ULTRA 2) 1 Each Kit, 1 EACH MC QDAY, #1 Use once a day to test blood sugar Prov:GUALBERTO DANIELLE MD 11/03/16 Discontinued Reported Medications Metoprolol Tartrate (METOPROLOL TARTRATE) 25 Mg Tablet, 1 TAB PO BID, TAB 07/21/17 Diltiazem Hcl (CARDIZEM CD) 180 Mg Cap.er.24h, 180 MG PO DAILY 07/21/17 Discontinued Scripts Warfarin Sodium (WARFARIN SODIUM) 5 Mg Tablet, 1 TAB PO QDAY, #30 TAB Prov:GUALBERTO DANIELLE MD 05/28/17 Metformin Hcl (METFORMIN HCL ER) 500 Mg Tab.er.24, 2 TAB PO QDAY, #60 TAB 4 Refills Prov:GUALBERTO DANIELLE MD 01/31/17 Follow up Referrals: Internal Medicine - In One Week @ [facility]-Primary Activity: As Tolerated Special Instructions: 1. Continue an ADA, heart failure diet. Glucose checks AC/HS initially, then per her primary care provider. 2. Daily INRs until INR is >1.9. Stop Lovenox when INR is >1.9. 3. PT/OT evaluations 4. ST for cognitive eval and treatment. Copies to: KATIANA PATEL MD Venous Thromboembolism VTE Risk Physician Assess for VTE Risk: Yes Patient's VTE Risk: Low VTE Diagnostic Test 2 Days Prior to Admit: No Antithrombotics Is Pt On Any Antithrombotics?: Yes Heart Failure Ejection Fraction %: 23 NYHA Class: III Is Patient on BRET Inhibitor?: Yes Is Patient on Beta Viktor?: Yes Admission Weight: 80 JUDY PRESTON MD Aug 09, 2017 08:16
[2017-08-09] MEDS ORDERED: WARF1TAB63 PO (08:17)
[2017-08-09] MEDS: LOSARTAN POTASSIUM 50 MG TAB PO SCH (08:42)
--- NOTE | 2017-08-09 08:59 | OT ECF NOTE ---
Type of Note: Discharge Note Primary Medical Diagnosis: Generalized weakness s/p UTI, AMS, and Influenza A Occupational Therapy Evaluation Date: 07/30/17 SUBJECTIVE: Prior Hospitalization: [facility] 07/26/17 thru 07/30/17 Prior Level of Function: Pt reports being (I) with ADLs and IADLs. Spouse/ Daughter assist with IADLs. Pt does not like to shower. Prior Living Status: Multilevel house, Spouse Community Services: No known needs Home Accessibility: Elevator All needs on one level Walk-in shower Equipment Owned: Front wheeled walker Toilet riser Extended tub bench Wheelchair Medical Complications/Past Medical History: Chronic n. damage, migraines, murmur, AFib, HTN, hx of PE, hx of L arm fx. 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 Max A v/c's to sequence safe sit<>stands ADL: Upper body dressing: Assistive device: None Upper body dressing ability: Set-up Lower body dressing: Assistive device: None Lower body dressing ability: Set-up Toileting: Assistive device: Raised toilet seat Toileting ability: SBA with v/c's for safety and sequencing Grooming/hygiene: Assistive device: Standing Grooming ability: SBA. Occasional v/c's for safety. Bathing: Assistive device: shower chair Bathing ability: Min A Standardized Assessment: Lori Index of Activities of Daily Livin/20 at initial evaluation (07/30). ASSESSMENT: Argenis presented to [facility] with generalized weakness s/p hospital stay for UTI, AMS, and Influenza A. She has met all skilled OT goals although safety is limited by cognition. Pt requires Max A v/c's with ADLs/IADLs for safety and problem solving. A home evaluation was completed and appropriate recommendations provided. Recommend 24/7 care secondary to pt's cognition and safety concerns. Family agreeable to plan for d/c home with 24/7 care and HH services. Problem List/Current Limitations: Decreased activity tolerance Generalized weakness Poor safety awareness Memory deficits Confusion Short Term Goals: 1) Pt will be SBA grooming/hygiene. GOAL MET. 2) Pt will be SBA toileting. GOAL MET. 3) Pt will be SBA UB/LB dressing. GOAL MET. 4) Pt will be Min A shower task. GOAL MET. 5) Pt Lori Index of ADLs score will increase by 2 points. GOAL MET. Chcf Goals: Return home with increased home services and 24/7 supervision Patient Goals: Return home with spouse Rehabilitation Prognosis: Good Barriers to Discharge: Cognition, Advanced age PLAN: Discharge home with HH services and 24/7 supervision. Thank you for this referral. If you have any questions, concerns, or comments about this report or plan, please contact me at . Tita Kelsey MS, OTR/L Occupational Therapist CHANDANA
[2017-08-09] MEDS ORDERED: ASPIRIN 81 MG ENTERIC COATED PO SCH (09:00)
[2017-08-09] MEDS ORDERED: metFORMIN HCL XR 500 MG TABCR PO SCH (09:00)
[2017-08-09] MEDS: METOPROLOL SUCC XL 50 MG TABCR 50 MG TAB.ER.24H PO SCH (09:03)
[2017-08-09] MEDS: POTASSIUM CHL 20 MEQ TABCR PO SCH (09:03)
[2017-08-09] MEDS: FUROSEMIDE 20 MG TAB PO SCH (09:03)
[2017-08-09] MEDS: ENOXAPARIN 100 MG/ML SYR SC SCH (09:03)
--- NOTE | 2017-08-09 12:54 | PT ECF NOTE ---
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 Prior Living Status: Bi-level house, Spouse Community Services: Unknown Home Accessibility: Elevator Equipment Owned: Front wheeled walker, Toilet riser, Extended tub bench, Wheelchair Medical Complications/Past Medical History: See EMR for details Psychosocial Support: Supportive and daughter Pain Scale (0-10): reports R) great toe discomfort OBJECTIVE: Strength: Right Lower Extremity: DF: 4/5 Knee flexion: 4/5 Knee extension: 4/5 Hip flexion: 3+/5 Left Lower Extremity: DF: 4/5 Knee flexion: 4/5 Knee extension: 4/5 Hip flexion: 3+/5 ROM: WFL Sensation: WNL Other Neuro findings: N/A Bed Mobility: Becka supine to sit, SBA sit to supine, Transfers: SBA with RW Gait: SBA' x300' with RW Stairs: CGA asc/desc platform stair Gait Speed (0.6m/second cannot function independently): 0.23 m/sec ASSESSMENT: Pt has made gains with functional mobility, but continues to require SBA with step by step verbal cues for safety and sequencing. 24hr care at home was recommended, the pt's family has elected transfer to LT rehab facility. Problem List/Current Limitations: Decreased strength Decreased balance Generalized weakness Poor safety awareness Memory deficits Decreased problem solving Confusion Short Term Goals: 1: Pt to complete bed mobility with SBA and HOB flat (partially met) 2: Pt to complete transfers from a variety of surfaces with SBA and least restrictive AD (met) 3: Pt to ambulate 250' with SBA and least restrictive AD (met) 4: Pt to asc/desc platform stair with SBA to simulate community mobility. ( partially met) 5: Pt to demonstrate an improvement in gait speed by at least 0.05 m/sec to indicate a small meaningful change. (not met) Alf Goals: Pt to discharge home with adequate support in place -- (pt discharging to [facility] rehab) Patient Goals: Pt did not verbalize goals PLAN: The patient will discharge to [facility] for continued skilled care. Thank you for this referral. If you have any questions, concerns, or comments about this report or plan, please contact me at . Lauren Kaplan, PT, DPT [facility]
[2017-08-09] MEDS ORDERED: WARFARIN SOD 1 MG TAB PO SCH ×3 (13:00)
[2017-08-10] MEDS ORDERED: WARFARIN SOD 1 MG TAB PO SCH (13:00)
== END 2017-08-09 13:30 | DRG 690 ==
LOC: ECF 10:15
PROVIDERS: ADMIT Family Medicine; ATTEND Family Medicine
DX: N30.00 Acute cystitis without hematuria (principal); I50.22 Chronic systolic (congestive) heart failure; J10.1 Influenza due to other identified influenza virus with other respiratory manifestations; I25.10 Atherosclerotic heart disease of native coronary artery without angina pectoris; I48.2 Chronic atrial fibrillation; E03.9 Hypothyroidism, unspecified; E11.9 Type 2 diabetes mellitus without complications; B96.1 Klebsiella pneumoniae [K. pneumoniae] as the cause of diseases classified elsewhere; Z79.01 Long term (current) use of anticoagulants; Z79.4 Long term (current) use of insulin; Z79.82 Long term (current) use of aspirin; Z88.0 Allergy status to penicillin; Z88.2 Allergy status to sulfonamides; Z88.8 Allergy status to other drugs, medicaments and biological substances; Z86.711 Personal history of pulmonary embolism; Z95.1 Presence of aortocoronary bypass graft; Z90.710 Acquired absence of both cervix and uterus; Z90.49 Acquired absence of other specified parts of digestive tract; Z87.891 Personal history of nicotine dependence
CPT/HCPCS: 36415; 36416; 82948; 85610; 97161; 97165; J1650

== ENCOUNTER → 2017-08-15 | Outpatient (REF) | payer MEDICARE, BC ==
[2017-07-30 10:06] VITALS: BMI 25.4
[~2017-08-15] MED LIST changes: +ENOX100D5 SC; +INSU100V24 SUBQ; +METO50TA19 PO; +METXR500 PO; +WARF1TAB63 PO
== END ==
LOC: ZZLCC 15:39
PROVIDERS: ATTEND Nurse Practitioner Family
DX: R41.82 Altered mental status, unspecified (principal); E03.9 Hypothyroidism, unspecified; I50.9 Heart failure, unspecified; Z79.899 Other long term (current) drug therapy
CPT/HCPCS: 82040; 82247; 82310; 82374; 82435; 82565; 82947; 83880; 84075; 84132; 84155; 84295; 84443; 84450; 84460; 84520; 85027

== ENCOUNTER → 2017-08-20 | Outpatient (REF) | payer MEDICARE, BC ==
[2017-07-30 10:06] VITALS: BMI 25.4
== END ==
LOC: ZZLCC 12:47
PROVIDERS: ATTEND Nurse Practitioner Family
DX: I50.9 Heart failure, unspecified (principal)
CPT/HCPCS: 82040; 82247; 82310; 82374; 82435; 82565; 82947; 83880; 84075; 84132; 84155; 84295; 84450; 84460; 84520

== ENCOUNTER → 2017-08-24 | Outpatient (CLI) | payer OTHER ==
[2017-07-30 10:06] VITALS: BMI 25.4
--- NOTE | 2017-08-27 08:59 | RADIOLOGY IMAGING REPORT ---
FACILITY: [facility] PATIENT NAME: MATEUS BARRETT : [id number] MR: [id number] V: [id number] EXAM DATE: ORDERING PHYSICIAN: VERO ANTOINE TECHNOLOGIST: Carloz Batres EXAMINATION:TWO-DIMENSIONAL ECHOCARDIOGRAPH REASON:HEART FAILURE 2D Measurements (normal values in centimeters) LV endLV endRV endVent.LV PostAorticLeftPercent DiastolicSystolicDiastolicSeptumWallRootAtriumShortening (3.5-5.7)(0.9-2.6)(0.6-1.1)(0.6-1.1)(2.0-3.7)(1.9-4.0)(25-35%) [id number]% STROKE VOLUME: 30mL ESTIMATED EJECTION FRACTION: 34% on average PARASTERNAL LONG AXIS: The right ventricle and left atrium appear to be enlarged. Mild concentric left ventricular thickening present. Significantly decreased left ventricular systolic function with some akinesis and dyskinesis along the interventricular septum. The aortic valve appears to be sclerotic and possibly mildly stenotic. Color examination of the mitral valve reveals a moderate amount of mitral insufficiency. Color examination of the aortic valve revealed some aortic insufficiency. Color examination of the tricuspid valve revealed some tricuspid insufficiency present. PARASTERNAL SHORT AXIS: Again significantly decreased left ventricular systolic function, akinesis along the interventricular septum, hypokinesis along the apex and possibly some akinesis along the apex as well. There is some dyskinesis along the interventricular septum. The patient appears to possibly be in a bundle branch block. Aortic valve is not well seen but it is trileaflet in configuration but appears to be heavily sclerotic and possibly stenotic. Color examination of the tricuspid valve revealed a moderate amount of tricuspid insufficiency. Tricuspid regurgitation V-max is measured 4.00 m/sec. APICAL FOUR AND TWO CHAMBER: Significantly decreased left ventricular systolic function hypokinesis along all the gil with akinesis at the apex and along the interventricular septum. Aortic valve area was measured at 1.7 cm2 with a mean pressure gradient across the valve of 10 mmHg and a dimensionless index of 0.4 indicating mild aortic stenosis. Left atrial volume is significantly increased at 44 mL/m2. Right atrial volume is normal at 25 mL/m2. Mitral valve area is measured within normal range at 2.6 cm2. Moderate amount of mitral and tricuspid insufficiency is noted. Regurgitant volume is 32 mL with regurgitant fraction of 43% and a effective regurgitant orifice of 19 mm. SUBCOSTAL VIEW: No pericardial effusion was noted. No atrial septal or ventricular septal defects were appreciated. The aortic root is borderline dilated at 3.6 cm. The PISA of the mitral regurgitation is 0.6 cm at an aliasing velocity of 35. Doppler examination of the mitral valve in diastole does reveal a normal pattern but there is decreased medial and lateral E prime velocities. Aortic insufficiency pressure halftime is measured at 508 msec but goes down to 440 msec at times. IVC is the upper range of normal in size at 2 cm. OVERALL IMPRESSION: 1. Significantly decreased left ventricular ejection fraction of approximately 34%. There is some generalized hypokinesis but also akinesis and dyskinesis along the interventricular septum as well as akinesis along the apex of the left ventricle. 2. Right ventricular function is also decreased with the TAPSE measuring 1.2 indicating moderate decrease in right ventricular function. 3. Grade 2 to 3/4 decrease in diastolic function. This indicates moderate to borderline severe decrease in diastolic function. 4. Mild concentric left ventricular thickening. 5. Mild right ventricular enlargement, severe left atrial enlargement. 6. Borderline to mildly dilated aortic root at 3.6 cm. 7. An aortic valve is probably trileaflet in configuration although it is heavily sclerotic and mildly stenotic with a valve area of 1.7 cm2 with mean pressure gradient across the valve of 10 mmHg and a dimensionless index of 0.4. There is a moderate amount of aortic insufficiency. 8. Moderate amount of mitral insufficiency with no mitral stenosis. 9. Moderate amount of tricuspid insufficiency with estimated right ventricular systolic pressures of 72 mmHg which does include an estimated right atrial pressure of 8 mmHg indicating severe pulmonary hypertension and increased right ventricular systolic pressures. 10. A trace to mild amount of pulmonic insufficiency. 11. In comparison to the examination done on 10/24/16, the left ventricular systolic function is slightly improved from 23% to 34%. The diastolic function although has decreased. The right ventricular function has also decreased. The aortic valve has also become mildly stenotic and the right ventricular systolic pressure have significantly increased from 47 mmHg to 72 mmHg. Dictated by: Rakesh Morris M.D. on 08/25/2017 at 9:45 Transcribed by: JIN on 08/26/2017 at 12:29 Approved by: Rakesh Morris M.D. on 08/27/2017 at 8:58 [facility]
== END ==
LOC: LAB 12:48
PROVIDERS: ATTEND Nurse Practitioner Family
DX: R29.898 Other symptoms and signs involving the musculoskeletal system (principal); I51.7 Cardiomegaly; I25.10 Atherosclerotic heart disease of native coronary artery without angina pectoris; I35.2 Nonrheumatic aortic (valve) stenosis with insufficiency; I34.0 Nonrheumatic mitral (valve) insufficiency; I07.1 Rheumatic tricuspid insufficiency; I37.1 Nonrheumatic pulmonary valve insufficiency; I10 Essential (primary) hypertension
CPT/HCPCS: 93306

== ENCOUNTER → 2017-08-27 | Outpatient (REF) | payer OTHER ==
[2017-07-30 10:06] VITALS: BMI 25.4
[2017-08-27 13:32] LABS: INR 2.07
== END ==
LOC: ZZLCC 12:22
PROVIDERS: ATTEND Nurse Practitioner Family
DX: I48.91 Unspecified atrial fibrillation (principal)
CPT/HCPCS: 85610

== ENCOUNTER → 2017-08-28 | Outpatient (REF) | payer MEDICARE ==
[2017-07-30 10:06] VITALS: BMI 25.4
== END ==
LOC: ZZLCC 16:16
PROVIDERS: ATTEND Nurse Practitioner Family
DX: I50.9 Heart failure, unspecified (principal); R60.0 Localized edema
CPT/HCPCS: 82040; 82247; 82310; 82374; 82435; 82565; 82947; 83880; 84075; 84132; 84155; 84295; 84450; 84460; 84520; 85027

== ENCOUNTER → 2017-09-05 | Outpatient (REF) | payer MEDICARE ==
[2017-07-30 10:06] VITALS: BMI 25.4
[~2017-09-05] MED LIST changes: -WARF-18 PO; +WARF1TAB15 PO; -WARF1TAB63 PO; +WARF5TAB23 PO
[2017-09-05 15:09] LABS: INR 1.64
== END ==
LOC: ZZLCC 14:20
PROVIDERS: ATTEND Nurse Practitioner Family
DX: I50.9 Heart failure, unspecified (principal); Z79.01 Long term (current) use of anticoagulants
CPT/HCPCS: 82040; 82247; 82310; 82374; 82435; 82565; 82947; 83880; 84075; 84132; 84155; 84295; 84450; 84460; 84520; 85610

== ENCOUNTER → 2017-09-13 | Outpatient (REF) | payer MEDICARE ==
[2017-07-30 10:06] VITALS: BMI 25.4
== END ==
LOC: ZZLCC 08:35
PROVIDERS: ATTEND Nurse Practitioner Family
DX: I50.9 Heart failure, unspecified (principal)
CPT/HCPCS: 82040; 82247; 82310; 82374; 82435; 82565; 82947; 83880; 84075; 84132; 84155; 84295; 84450; 84460; 84520

== ENCOUNTER → 2017-11-20 | Outpatient (CLI) | payer MEDICARE, BC ==
[2017-07-30 10:06] VITALS: BMI 25.4
[~2017-11-20] MED LIST changes: -ASPI-816 PO; +ASPI-870 PO; +GLIM1TAB25 PO; +WARF3TAB14 PO
[2017-11-20 14:14] LABS: PLATELET COUNT, AUTOMATED 204 K/uL (150-450)
[2017-11-20 14:17] LABS: INR 3.11
== END ==
LOC: LAB 13:43
PROVIDERS: ATTEND Internal Medicine
DX: I48.91 Unspecified atrial fibrillation (principal); I50.9 Heart failure, unspecified; E11.9 Type 2 diabetes mellitus without complications; E03.9 Hypothyroidism, unspecified
CPT/HCPCS: 36415; 82040; 82247; 82310; 82374; 82435; 82565; 82947; 83036; 83880; 84075; 84132; 84155; 84295; 84443; 84450; 84460; 84520; 85025; 85610

== ENCOUNTER → 2017-12-07 | Outpatient (CLI) | payer MEDICARE, BC ==
[2017-07-30 10:06] VITALS: BMI 25.4
[2017-12-07 11:06] LABS: INR 2.42
== END ==
LOC: LAB 10:32
PROVIDERS: ATTEND Internal Medicine
DX: I48.91 Unspecified atrial fibrillation (principal); I25.10 Atherosclerotic heart disease of native coronary artery without angina pectoris; E11.9 Type 2 diabetes mellitus without complications
CPT/HCPCS: 36415; 85610

== ENCOUNTER → 2017-12-19 | Outpatient (CLI) | payer MEDICARE, BC ==
[2017-07-30 10:06] VITALS: BMI 25.4
[2017-12-19 12:30] LABS: INR 1.27
== END ==
LOC: LAB 12:12
PROVIDERS: ATTEND Internal Medicine
DX: Z51.81 Encounter for therapeutic drug level monitoring (principal); Z79.01 Long term (current) use of anticoagulants; I48.91 Unspecified atrial fibrillation; I26.99 Other pulmonary embolism without acute cor pulmonale
CPT/HCPCS: 36415; 85610

== ENCOUNTER → 2017-12-26 | Outpatient (CLI) | payer MEDICARE, BC ==
[2017-07-30 10:06] VITALS: BMI 25.4
[2017-12-26 12:24] LABS: INR 1.27
== END ==
LOC: LAB 11:29
PROVIDERS: ATTEND Internal Medicine
DX: I48.91 Unspecified atrial fibrillation (principal)
CPT/HCPCS: 36415; 85610

== ENCOUNTER → 2018-01-07 | Outpatient (CLI) | payer MEDICARE, BC ==
[2017-07-30 10:06] VITALS: BMI 25.4
[2018-01-07 12:28] LABS: INR 1.65
== END ==
LOC: LAB 11:32
PROVIDERS: ATTEND Internal Medicine
DX: I48.91 Unspecified atrial fibrillation (principal)
CPT/HCPCS: 36415; 85610

== ENCOUNTER → 2018-01-24 | Outpatient (CLI) | payer MEDICARE, BC ==
[2017-07-30 10:06] VITALS: BMI 25.4
[~2018-01-24] MED LIST changes: +NITR-105 PO
[2018-01-24 12:12] LABS: INR 2.33
== END ==
LOC: LAB 10:36
PROVIDERS: ATTEND Internal Medicine
DX: I48.91 Unspecified atrial fibrillation (principal)
CPT/HCPCS: 36415; 85610

== ENCOUNTER → 2018-01-25 | Outpatient (CLI) | payer MEDICARE, BC ==
[2017-07-30 10:06] VITALS: BMI 25.4
== END ==
LOC: LAB 15:14
PROVIDERS: ATTEND Nurse Practitioner Primary Care
DX: R35.0 Frequency of micturition (principal); B96.89 Other specified bacterial agents as the cause of diseases classified elsewhere
CPT/HCPCS: 81001; 87077; 87088; 87186

== ENCOUNTER → 2018-02-01 | Outpatient (CLI) | payer MEDICARE, BC ==
[2017-07-30 10:06] VITALS: BMI 25.4
[2018-02-01 13:47] LABS: INR 2.42
== END ==
LOC: LAB 13:27
PROVIDERS: ATTEND Internal Medicine
DX: I48.91 Unspecified atrial fibrillation (principal)
CPT/HCPCS: 36415; 85610

== ENCOUNTER → 2018-02-08 | Outpatient (CLI) | payer MEDICARE, BC ==
[2017-07-30 10:06] VITALS: BMI 25.4
[2018-02-08 15:10] LABS: INR 3.24
== END ==
LOC: LAB 14:44
PROVIDERS: ATTEND Internal Medicine
DX: I48.91 Unspecified atrial fibrillation (principal)
CPT/HCPCS: 36415; 85610

== ENCOUNTER → 2018-02-15 | Outpatient (CLI) | payer MEDICARE, BC ==
[2017-07-30 10:06] VITALS: BMI 25.4
[2018-02-15 14:08] LABS: INR 2.2
== END ==
LOC: LAB 13:36
PROVIDERS: ATTEND Internal Medicine
DX: I48.91 Unspecified atrial fibrillation (principal)
CPT/HCPCS: 36415; 85610

== ENCOUNTER → 2018-03-01 | Outpatient (CLI) | payer MEDICARE, BC ==
[2017-07-30 10:06] VITALS: BMI 25.4
[2018-03-01 14:41] LABS: PLATELET COUNT, AUTOMATED 190 K/uL (150-450)
== END ==
LOC: LAB 13:44
PROVIDERS: ATTEND Internal Medicine
DX: E11.9 Type 2 diabetes mellitus without complications (principal); E03.9 Hypothyroidism, unspecified; I48.91 Unspecified atrial fibrillation; I25.10 Atherosclerotic heart disease of native coronary artery without angina pectoris
CPT/HCPCS: 36415; 82040; 82247; 82310; 82374; 82435; 82565; 82947; 83880; 84075; 84132; 84155; 84295; 84443; 84450; 84460; 84520; 85025

== ENCOUNTER → 2018-04-17 | Outpatient (REF) | payer MEDICARE, BC ==
[2017-07-30 10:06] VITALS: BMI 25.4
[~2018-04-17] MED LIST changes: -LOSA100T67 PO; +LOSA100T69 PO; -LOSA25TA50 PO; +LOSA25TA52 PO; -LOSA50TA72 PO; +LOSA50TA74 PO
== END ==
LOC: ZZSENDIN 15:32
PROVIDERS: ATTEND Internal Medicine
DX: E11.9 Type 2 diabetes mellitus without complications (principal); R30.0 Dysuria
CPT/HCPCS: 81001

== ENCOUNTER → 2018-05-27 | Outpatient (CLI) | payer MEDICARE, BC ==
[2017-07-30 10:06] VITALS: BMI 25.4
[~2018-05-27] MED LIST changes: +APIX5TAB PO
[2018-05-27 15:54] LABS: PLATELET COUNT, AUTOMATED 197 K/uL (150-450)
== END ==
LOC: LAB 15:19
PROVIDERS: ATTEND Internal Medicine
DX: I48.91 Unspecified atrial fibrillation (principal); I25.10 Atherosclerotic heart disease of native coronary artery without angina pectoris; I50.9 Heart failure, unspecified; E11.9 Type 2 diabetes mellitus without complications; E03.9 Hypothyroidism, unspecified
CPT/HCPCS: 36415; 82040; 82247; 82310; 82374; 82435; 82565; 82947; 83036; 83880; 84075; 84132; 84155; 84295; 84443; 84450; 84460; 84520; 85025

== ENCOUNTER → 2018-09-24 | Outpatient (CLI) | payer MEDICARE, BC ==
[2017-07-30 10:06] VITALS: BMI 25.4
[~2018-09-24] MED LIST changes: -LOSA100T69 PO; +LOSA100T75 PO; -LOSA25TA52 PO; +LOSA25TA57 PO; -LOSA50TA74 PO; +LOSA50TA80 PO; +WARF2TAB13 PO
--- NOTE | 2018-09-25 13:39 | RADIOLOGY IMAGING REPORT ---
FACILITY: [facility] PATIENT NAME: MATEUS BARRETT : [id number] MR: [id number] V: [id number] EXAM DATE: ORDERING PHYSICIAN: GUALBERTO DANIELLE TECHNOLOGIST: Carloz Batres RDMS, JERARDO PROCEDURE:US LEFT BREAST COMPARISON:Today's mammogram. INDICATIONS:Palpable lump upper outer quadrant of the Left breast. FINDINGS: In the 1 o'clock position of the Left breast 4cm from the nipple there is a polylobular mass of mixed echogensity with both a polylobular echogenic component measuring 1.4 x 0.6 x 1.6cm and an irregular hypoechoic component measuring 0.7 x 0.5 x 10mm. DIAGNOSTIC CATEGORY 5--HIGHLY SUGGESTIVE OF MALIGNANCY. RECOMMENDATIONS: ULTRASOUND-GUIDED CORE BIOPSY: LEFT BREAST. IMPRESSION: BIRADS 5: Highly suggestive of malignancy. Ultrasound guided core biopsy is recommended. Dictated by: Eli Darling M.D. on 09/24/2018 at 16:15 Transcribed by: ALEJO on 09/25/2018 at 8:55 Approved by: Eli Darling M.D. on 09/25/2018 at 13:37 [facility]
--- NOTE | 2018-09-25 13:39 | RADIOLOGY IMAGING REPORT ---
FACILITY: [facility] [place] PATIENT NAME: MATEUS BARRETT : [id number] MR: [id number] V: [id number] EXAM DATE: [id number] ORDERING PHYSICIAN: GUALBERTO DANIELLE TECHNOLOGIST: Kandy Nugent PROCEDURE:BILATERAL DIAGNOSTIC DIGITAL MAMMOGRAM WITH CAD ASSISTED INTERPRETATION & 3D TOMOSYNTHESIS COMPARISON:Prior mammograms 03/11/09, 09/04/08, 02/21/08, 02/07/08, 08/20/06. INDICATIONS:PALPABLE LUMP IN THE UPPER OUTER QUADRANT OF THE LEFT BREAST FINDINGS: The breasts are heterogeneously dense which can obscure small masses. In the upper outer quadrant of the Left breast in the middle 1/3 there is a polylobular mass which was not present previously. This was shown sonographically to represent an irregular mixed density mass on Today's Left breast Ultrasound extremely concerning for malignancy. Ultrasound guided core biopsy is recommended for further evaluation. DIAGNOSTIC CATEGORY 5--HIGHLY SUGGESTIVE OF MALIGNANCY. RECOMMENDATIONS: ULTRASOUND-GUIDED CORE BIOPSY: LEFT BREAST. IMPRESSION: BIRADS 5: Highly suggestive of malignancy. Ultrasound guided core biopsy of the polylobular mass in the 1 o'clock position of the Left breast 4cm from the nipple recommended for further evaluation. Dictated by: Eli Darling M.D. on 09/24/2018 at 16:14 Transcribed by: ALEJO on 09/25/2018 at 8:50 Approved by: Eli Darling M.D. on 09/25/2018 at 13:37 [facility]
== END ==
LOC: MAMO 09-09 02:11
PROVIDERS: ATTEND Internal Medicine
DX: N63.20 Unspecified lump in the left breast, unspecified quadrant (principal)
CPT/HCPCS: 77062; 77066

== ENCOUNTER → 2018-10-07 | Outpatient (CLI) | payer MEDICARE, BC ==
[2017-07-30 10:06] VITALS: BMI 25.4
[2018-10-07 14:13] LABS: INR 1.46
== END ==
LOC: LAB 13:31
PROVIDERS: ATTEND Surgery
DX: N63.20 Unspecified lump in the left breast, unspecified quadrant (principal)
CPT/HCPCS: 36415; 85610

== ENCOUNTER 2018-10-10 12:06 | Outpatient (RCR) | payer MEDICARE, BC ==
[2017-07-30 10:06] VITALS: BMI 25.4
[2018-10-10 12:34] LABS: INR 1.15
--- NOTE | 2018-10-15 12:52 | RADIOLOGY IMAGING REPORT ---
FACILITY: [facility] [place] PATIENT NAME: MATEUS BARRETT : [id number] MR: [id number] V: [id number] EXAM DATE: [id number] ORDERING PHYSICIAN: ANTHONY PRUITT TECHNOLOGIST: Rufina Haynes RDMS PROCEDURE: ULTRASOUND GUIDED NEEDLE CORE BIOPSY OF LEFT BREAST LESION A, AND ULTRASOUND GUIDED NEEDLE CORE BIOPSY OF LEFT BREAST LESION B. COMPARISON: 09/24/18. INDICATIONS: Left breast masses. FINDINGS: The procedure and risks including bleeding, infection, and inadequate sampling were explained to the patient who agreed to proceed. Preliminary Ultrasound images confirm a hypoechoic 1.4cm mass immediately adjacent a 1.0cm hypoechoic mass in the upper outer quadrant of the Left breast. The hypoechoic component is designated as Lesion A. The hypoechoic component is designated Lesion B. Following sterile prep and drape a 12 Gauge core cut biopsy device was advanced to the edge of Lesion A. The needle was fired into the lesion. 4 additional cores were obtained from this component and labeled Lesion A. Under direct Ultrasound guidance a 12 Gauge biopsy gun was advanced to the edge of Lesion B. 5 cores were obtained from Lesion B, placed into formalin, and labeled Lesion B. Under Ultrasound guidance a marking clip was deposited in the biopsy bed of Lesion A. A second site biopsy clip was deposited in the biopsy bed of Lesion B. Post biopsy Left Diagnostic Mammographic images demonstrate satisfactory position of the biopsy clips along the lesions A & B. Direct pressure was applied to the puncture site until hemostats was obtained. A sterile dressing was applied. The patient tolerated the procedure without compilations. IMPRESSION: Ultrasound guided needle core biopsies of Left breast Lesion A and Lesion B. Dictated by: Kervin Huynh M.D. on 10/11/2018 at 16:32 Transcribed by: ALEJO on 10/14/2018 at 11:04 Approved by: Chriss Botello M.D. on 10/15/2018 at 12:51 [facility]
--- NOTE | 2018-10-15 12:52 | RADIOLOGY IMAGING REPORT ---
FACILITY: [facility] PATIENT NAME: MATEUS BARRETT : [id number] MR: [id number] V: [id number] EXAM DATE: [id number] ORDERING PHYSICIAN: ANTHONY PRUITT TECHNOLOGIST: Rufina Haynes RDMS PROCEDURE: ULTRASOUND GUIDED NEEDLE CORE BIOPSY OF LEFT BREAST LESION A, AND ULTRASOUND GUIDED NEEDLE CORE BIOPSY OF LEFT BREAST LESION B. COMPARISON: 09/24/18. INDICATIONS: Left breast masses. FINDINGS: The procedure and risks including bleeding, infection, and inadequate sampling were explained to the patient who agreed to proceed. Preliminary Ultrasound images confirm a hypoechoic 1.4cm mass immediately adjacent a 1.0cm hypoechoic mass in the upper outer quadrant of the Left breast. The hypoechoic component is designated as Lesion A. The hypoechoic component is designated Lesion B. Following sterile prep and drape a 12 Gauge core cut biopsy device was advanced to the edge of Lesion A. The needle was fired into the lesion. 4 additional cores were obtained from this component and labeled Lesion A. Under direct Ultrasound guidance a 12 Gauge biopsy gun was advanced to the edge of Lesion B. 5 cores were obtained from Lesion B, placed into formalin, and labeled Lesion B. Under Ultrasound guidance a marking clip was deposited in the biopsy bed of Lesion A. A second site biopsy clip was deposited in the biopsy bed of Lesion B. Post biopsy Left Diagnostic Mammographic images demonstrate satisfactory position of the biopsy clips along the lesions A & B. Direct pressure was applied to the puncture site until hemostats was obtained. A sterile dressing was applied. The patient tolerated the procedure without compilations. IMPRESSION: Ultrasound guided needle core biopsies of Left breast Lesion A and Lesion B. Dictated by: Kervin Huynh M.D. on 10/11/2018 at 16:32 Transcribed by: ALEJO on 10/14/2018 at 11:04 Approved by: Chriss Botello M.D. on 10/15/2018 at 12:51 [facility]
== END 2018-10-11 18:00 | disposition home or self-care (01) ==
LOC: US 12:06 → EDSTATUS 10-11 12:06 → US 10-11 18:00
PROVIDERS: ATTEND Surgery
DX: N63.20 Unspecified lump in the left breast, unspecified quadrant (principal); Z79.01 Long term (current) use of anticoagulants
CPT/HCPCS: 19083; 36415; 77061; 77065; 85610; 88305; 88344

== ENCOUNTER → 2018-10-25 | Outpatient (CLI) | payer MEDICARE, BC ==
[2017-07-30 10:06] VITALS: BMI 25.4
[2018-10-25 11:55] LABS: PLATELET COUNT, AUTOMATED 176 K/uL (150-450)
== END ==
LOC: LAB 11:35
PROVIDERS: ATTEND Surgery
DX: E11.9 Type 2 diabetes mellitus without complications (principal); I50.9 Heart failure, unspecified; I25.10 Atherosclerotic heart disease of native coronary artery without angina pectoris; I48.91 Unspecified atrial fibrillation; I26.99 Other pulmonary embolism without acute cor pulmonale; E83.42 Hypomagnesemia
CPT/HCPCS: 36415; 82310; 82374; 82435; 82565; 82947; 83036; 84132; 84295; 84520; 85025

== ENCOUNTER → 2018-11-01 | Outpatient (CLI) | payer MEDICARE, BC ==
[2017-07-30 10:06] VITALS: BMI 25.4
[~2018-11-01] MED LIST changes: +ENOX100D5 SQ
== END ==
LOC: US 06:53
PROVIDERS: ATTEND Surgery
DX: I51.7 Cardiomegaly (principal); I45.9 Conduction disorder, unspecified; I51.89 Other ill-defined heart diseases
CPT/HCPCS: C8929; Q9957

== ENCOUNTER → 2018-12-12 | Outpatient (CLI) | payer MEDICARE, BC ==
[2017-07-30 10:06] VITALS: BMI 25.4
[2018-12-12 13:41] LABS: PLATELET COUNT, AUTOMATED 159 K/uL (150-450)
--- NOTE | 2018-12-12 14:32 | RADIOLOGY IMAGING REPORT ---
FACILITY: [facility] PATIENT NAME: Argenis Jones : 1930 MR: [id number] V: [id number] EXAM DATE: ORDERING PHYSICIAN: GUALBERTO DANIELLE TECHNOLOGIST: Location: [facility] Patient: Argenis Jones : 1930 Visit/Account:[id number] Date of Sevice: 12/12/2018 Exam type: CHEST PA LAT History: A. Fib, left breast cancer, congestive heart failure Comparison: 07/28/2017. Findings: Both lungs are hyperinflated but otherwise clear. There is no focal infiltrate, pleural effusion or pneumothorax. Heart size is enlarged and postoperative changes noted from median sternotomy. Thoracic aorta is ect atic but unchanged. Osseous structures demonstrate a left humeral arthroplasty and scoliosis of the spine as well as oste openia. IMPRESSION: 1. No acute cardiopulmonary disease. Report Dictated By: Chriss Botello MD at 12/12/2018 2:26 PM Report E-Signed By: Chriss Botello MD at 12/12/2018 2:28 PM WSN:SYLVESTER
--- NOTE | 2018-12-13 10:12 | EKG ---
FACILITY: [facility] PATIENT NAME: MATEUS BARRETT : [id number] MR: [id number] V: [id number] EXAM DATE: ORDERING PHYSICIAN: GUALBERTO DANIELLE TECHNOLOGIST: TYRONE Test Reason : SOB Blood Pressure : / mmHG Vent. Rate : 075 BPM Atrial Rate : 090 BPM P-R Int : 000 ms QRS Dur : 154 ms QT Int : 446 ms P-R-T Axes : 000 055 222 degrees QTc Int : 498 ms Atrial fibrillation Left bundle branch block Abnormal ECG When compared with ECG of 25-OCT-2018 10:58, Previous ECG has undetermined rhythm, needs review Referred By: MOR Confirmed By:
== END ==
LOC: LAB 13:06
PROVIDERS: ATTEND Internal Medicine
DX: I48.91 Unspecified atrial fibrillation (principal); C50.912 Malignant neoplasm of unspecified site of left female breast; I25.10 Atherosclerotic heart disease of native coronary artery without angina pectoris; I50.9 Heart failure, unspecified; E11.9 Type 2 diabetes mellitus without complications; E03.9 Hypothyroidism, unspecified
CPT/HCPCS: 36415; 71046; 82040; 82247; 82310; 82374; 82435; 82565; 82947; 83036; 83880; 84075; 84132; 84155; 84295; 84443; 84450; 84460; 84520; 85025

== ENCOUNTER 2019-02-06 00:18 | Day surgery (SDC) | payer MEDICARE, BC ==
[2017-07-30 10:06] VITALS: Ht 165.1 cm; Wt 73.5 kg
[~2019-02-06] VITALS: Ht 165.1 cm; Wt 73.5 kg
[2019-02-06] VITALS (11 sets, daily range): BP systolic 101–132; BP diastolic 55–93
[~2019-02-06 00:18] MED LIST changes: +ALBU8.5H IH; +PRED-420 PO
[2019-02-06 08:53] LABS: INR 1.08
[2019-02-06] MEDS ORDERED: MIDAZOLAM 2 MG/2 ML VIAL IVP PRN (09:10)
[2019-02-06] MEDS ORDERED: VANCOMYCIN(*) 1 GM VIAL 1 GM in NS(*) 0.9% 250 ML BAG 250 ML IVPB ONE (09:10)
[2019-02-06] MEDS ORDERED: NORMOSOL R SOLN(*) 1000 ML BAG 1,000 ML IV PRN (09:10)
[2019-02-06] MEDS ORDERED: FAMOTIDINE 20 MG TAB PO ONE (09:10)
[2019-02-06] MEDS ORDERED: LIDOCAINE/SOD BICARB 8.4% SYR ID ONE (09:10)
[2019-02-06] MEDS ORDERED: ROPIVACAINE 0.5% 20 ML VIAL ONE (10:11)
[2019-02-06] MEDS ORDERED: TRAM-420 PO (11:42)
[2019-02-06] MEDS ORDERED: DOCU-416 PO (11:42)
--- NOTE | 2019-02-06 11:46 | Short(Outpt) Discharge Summary ---
Discharge Summary Reason for Hosp/Final Diag: (1) Breast cancer, left breast Status: Chronic Hospital Course & Plan: Left breast cancer removed without problems. Departure Discharge to: Home, Self Care Discharge Instructions Home Meds Active Scripts Docusate Sodium (COLACE) 100 Mg Capsule, 1 CAP PO BID, #30 CAP 0 Refills TAKE WITH A FULL GLASS OF WATER Prov:ANTHONY PRUITT MD 02/06/19 Tramadol Hcl (TRAMADOL HCL) 50 Mg Tablet, 1 TAB PO Q4H PRN for PAIN, #20 TAB 0 Refills Prov:ANTHONY PRUITT MD 02/06/19 Potassium Chloride (POTASSIUM CHLORIDE) 20 Meq Tab.er.prt, 20 MEQ PO QODAY, #45 TAB 1 Refill Prov:GUALBERTO DANIELLE MD 01/30/19 Enoxaparin Sodium (LOVENOX) 100 Mg/1 Ml Disp.syrin, 100 MG SQ Q24H, #14 SYR start Lovenox 100 mcg sq daily on 01/30/19 Last dose OF lOVENOX before surgery on 02/04/19 Surgery on 02/06/2019 Prov:GUALBERTO DANIELLE MD 01/29/19 Levothyroxine Sodium (LEVOTHYROXINE SODIUM) 25 Mcg Tablet, 1 TAB PO QDAY, #90 TAB 4 Refills Prov:GUALBERTO DANIELLE MD 01/24/19 Metoprolol Succinate (METOPROLOL SUCCINATE) 25 Mg Tab.er.24h, 1 TAB PO QDAY, #90 TAB 1 Refill Prov:GUALBERTO DANIELLE MD 11/21/18 Furosemide (FUROSEMIDE) 20 Mg Tablet, 3 TAB PO QDAY, #270 TAB 3 Refills Prov:GUALBERTO DANIELLE MD 11/19/18 Warfarin Sodium (WARFARIN SODIUM) 2 Mg Tablet, 2 MG PO QDAY, #30 TAB 6 Refills Prov:GUALBERTO DANIELLE MD 10/28/18 Atorvastatin Calcium (ATORVASTATIN CALCIUM) 10 Mg Tablet, 1 TAB PO QDAY, #90 TAB 3 Refills Prov:GUALBERTO DANIELLE MD 05/28/18 Losartan Potassium (LOSARTAN POTASSIUM) 25 Mg Tablet, 25 MG PO QDAY, #90 TAB 3 Refills Prov:GUALBERTO DANIELLE MD 11/27/17 Aspirin (ASPIR 81) 81 Mg Tablet.dr, 81 MG PO QDAY, #90 TAB 3 Refills Prov:GUALBERTO DANIELLE MD 11/27/17 Glimepiride (GLIMEPIRIDE) 1 Mg Tablet, 1 MG PO QDAY, #90 TAB 3 Refills Prov:GUALBERTO DANIELLE MD 11/27/17 Discontinued Scripts Prednisone 10 Mg Tab (PREDNISONE 10 MG TAB) 10 Mg Tab.ds.pk, 10 MG PO BID, #10 TAB Prov:GUALBERTO DANIELLE MD 12/18/18 Albuterol Sulfate 90 Mcg/Act (PROAIR HFA 90 MCG/ACT) 8.5 Gm Hfa.aer.ad, 2 PUFF IH Q4-6H PRN for SHORTNESS OF BREATH, #1 INHALER Prov:GUALBERTO DANIELLE MD 12/17/18 Follow up Referrals: General Surgery - 02/24/19 @ Surgery, General with ANTHONY PRUITT MD You have a follow up appointment with Dr. Pruitt on 02/24/19, at 3:45pm. Diet: Regular Activity: As Tolerated Special Instructions: You may remove the white surgical dressings on 02/08/19, then you can shower. After showering, leave the incision open to air but leave the steristrips in place until they fall off on their own. Do not immerse the incisions for 2 weeks after surgery. Restart lovenox on 02/08/19, and you can restart coumadin (warfarin) this evening (02/06/19). Problem Qualifiers (1) Breast cancer, left breast: Breast location: upper outer quadrant of breast Estrogen receptor status: positive Patient sex: female Qualified Codes: C50.412 - Malignant neoplasm of upper-outer quadrant of left female breast; Z17.0 - Estrogen receptor positive status [ER+] ANTHONY PRUITT MD Feb 06, 2019 11:46
--- NOTE | 2019-02-06 11:48 | NUR ---
1125 PT ARRIVED TO SD DIRECTLY FROM OR, SBAR FROM DAVE, RN, ALVARADO, RN AND DR. WEBBER, VSS, PT ALERT, BUT MAKING COMMENTS OUT OF CONTEXT. DRESSING C/D/I, DENIES PAIN 1145 VSS, PT ORIENTED TO PERSON, BUT NOT PLACE OR TIME.
--- NOTE | 2019-02-06 11:50 | Post Operative Progress Note ---
Post Operative Progress Note Date: Feb 06, 2019 Time: 11:43 Surgeon: Harley Dictation number: [id number] Anesthesia: TIVA by Dr. Guzman Pre-Op Diagnosis: Left breast cancer Post-Op Diagnosis: ANTHONY Findings: C/W dx Procedure(s): Wire guided excision of left breast cancer Specimen Removed:(May be N/A): Left breast cancer Complications: None Fluids: See anesthesia record Estimated Blood Loss: Minimal Date OP Note Dictated: Feb 06, 2019 Time OP Note Dictated: 11:44 ANTHONY PRUITT MD Feb 06, 2019 11:50
--- NOTE | 2019-02-06 12:30 | OPERATIVE REPORT 1 ---
EVENT DATE: February 06, 2019 SURGEON: Negro Souza MD ANESTHESIOLOGIST: Db Guzman MD ANESTHESIA: TIVA PREOPERATIVE DIAGNOSIS Left breast cancer. POSTOPERATIVE DIAGNOSIS Left breast cancer. PROCEDURE PERFORMED Wide excision of a left breast cancer, wire guided. COMPLICATIONS None. CONDITION Stable. ESTIMATED BLOOD LOSS Minimal. INDICATIONS This is an 89-year-old female who was found to have a suspicious lesion in her left breast on mammography and a subsequent biopsy revealed this to be a breast cancer. She has significant cardiac issues and so the family did not want anything aggressive and she is not a candidate for chemotherapy but the patient and her family wanted the primary cancer removed. It was decided upon to do this under TIVA anesthesia. DESCRIPTION OF PROCEDURE The patient was brought to the operating room and placed supine on the operating table. TIVA anesthesia was administered and her left breast was prepped and draped in sterile fashion. I marked the skin around the palpable mass with the skin dimple in an elliptical fashion and then anesthetized the skin initially with 1% Lidocaine plain and then after the area was anesthetized, I added 0.5% ropivacaine plain for longer-acting anesthesia. I then made a skin incision where I marked the skin and dissected through the dermis and subcutaneous fat and then dissected completely around the mass with normal tissue between my dissection plane and the mass. I then passed the specimen off the field after marking it with a short silk stitch on the superior aspect, long silk stitch on the lateral aspect. I then made the wound hemostatic with electrocautery, irrigated and dried the wound and then closed the pocket with running 3-0 Vicryl sutures and then closed the skin with interrupted 3-0 Vicryl deep dermal sutures and 4-0 Monocryl running subcuticular sutures. The skin was then cleaned off and dried and Steri-Strips were applied followed by a sterile surgical dressing. The patient was then brought to the recovery area in good condition having tolerated the procedure without any apparent problems. CHANDANA
[2019-02-06] MEDS ORDERED: ACETAMINOPHEN 325 MG TAB PO ONE (14:10)
--- NOTE | 2019-02-06 14:58 | NUR ---
1430 pt tolerating checo crackers and chocolate ice cream, switched to sticky pulse ox to capture better waveform while pt eats 1450 placed back on 2l nc, o2 sats low 80s 1455 bumped up to 4l nc, satting low to mid 90s
--- NOTE | 2019-02-06 15:55 | NUR ---
1505 PT BACK DOWN TO RA, BORDERLINE, BUT HOLDING O2 SATS 1510 PT NEEDS TO USE RESTROOM, UP TO SITTING FOR ORTHOSTATICS, STABLE, 2 PERSON TRANSFER TO , MOVED TO PACU RESTROOM, VOIDED WITHOUT DIFFICULTY, DRESSED WITH DAUGHTER'S ASSISTANCE IN RESTROOM 1530 BACK TO PT'S ROOM, REASSESSED, UNREMARKABLE CHANGES, IV OUT, AND D/C INSTRUCTIONS COVERED 1540 DR. PRUITT AT BEDSIDE, CLARIFIED D/C ORDERS ABOUT ANTICOAGULATION, PT AND DAUGHTER WERE TOLD TO DISREGARD INSTRUCTIONS TO RESTART LOVENOX. THIS PORTION OF THE INSTRUCTIONS WAS CROSSED OUT IN THE D/C PACKET. ALL QUESTIONS ANSWERED, PT OUT TO CAR IN , ALL BELONGINGS WITH PT. PT TRANSFERRED TO VEHICLE OUTSIDE OF ADMITTING ENTRANCE WITH 2 PERSON ASSIST, SAFETY MAINTAINED
[2019-02-11] MEDS ORDERED: LOSA25TA57 PO (13:24)
== END 2019-02-06 15:45 | disposition home or self-care (01) ==
LOC: OR 00:18
PROVIDERS: ATTEND Surgery
DX: C50.412 Malignant neoplasm of upper-outer quadrant of left female breast (principal); Z17.0 Estrogen receptor positive status [ER+]; I10 Essential (primary) hypertension; I48.91 Unspecified atrial fibrillation; Z79.01 Long term (current) use of anticoagulants; E03.9 Hypothyroidism, unspecified; E11.9 Type 2 diabetes mellitus without complications
CPT/HCPCS: 19120; 36415; 36416; 82948; 85610; 88305; A9270; J2795; J3370; J7050